=== PATIENT | male | born 1970 | race Hispanic/Latino ===

== ENCOUNTER 2021-03-20 15:11 | Inpatient (IN) | payer BC ==
--- OUTSIDE RECORDS SUMMARY | 2021-03-20 15:15 | XMS REPORT | Continuity of Care Document ---
:1970 Author Organization [facility] t Address [address] [place] [address] Dr. C[address]o [address] [place] [address] Care Team Providers Name Role Phone MAAMECHEMA SMITHFREDERICK Mancia Primary Care Physician Unavailable LYNDA Attending Clinician Unavailable EBRAHIM Attending Clinician Unavailable Ebrahim RESEARCH LABORATORY TECHNICIAN Attending Clinician Anene RESEARCH LABORATORY TECHNICIAN Attending Clinician Eric_Ronni Attending Clinician Unavailable Eric_Ronni Admitting Clinician Unavailable Payers Payer Name Policy Type Policy Number Effective Date Expiration Date S migdalia [facility] - [id number] 2013 00:00:00 OUT OF STATE [place] [facility] [id number] 2019 00:00:00 Problems Condition Condition Condition Status Onset Resolution Last Treating Co mments Source Name Details Category Date Date Treatment Clinician Date Long-term Long-term Problem Active Parvin colleen current Current 11-17 Family use of Use of 00:00: Practic insulin Insulin 00 e Gastropare Gastropare Problem Active V illage sis due to sis Due to 11-17 Fa penny type 1 Type 1 00:00: Practic diabetes Diabetes 00 e mellitus Mellitus Loss of Loss of Problem Active [facility] appetite Appetite 6-16 Family 00:00: Practic 00 e Neck Neck Problem Active [place] swelling Swelling 6-16 Family 00:00: Practic 00 e Type 1 Type 1 Problem Active [place] diabetes Diabetes 3-15 Family mellitus Mellitus 00:00: Practi c 00 e Chronic Chronic Disease Active Univers fatigue fatigue 12-16 ity of 00:00: [address] Mold Mold Disease Active Univers exposure exposure 9-30 ity of 00:00: [place] 00 Medical Branch Polyarthra Polyarthra Disease Active U nivers lgia lgia 9-30 ity of 00:00: [place] 00 Medical Branch Testicular Testicular Problem Active V illage hypofuncti Hypofuncti 6-30 Fa penny on on 00:00: Practic 00 e Unspecifie Unspecifie Disease Active U nivers d severe d severe 5-21 ity of protein-ca protein-ca 00:00: Patrick stewart 00 Medical malnutriti malnutriti Br anch on on Sepsis Sepsis Disease Active Univers affecting affecting 5-21 ity of skin skin 00:00: [place] 00 Medical Branch Left Left Disease Active Univers shoulder shoulder 1-17 ity of pain, pain, 00:00: [place] unspecifie unspecifie 00 Me dical d d Branch chronicity chronicity Anemia Anemia Problem Active 2016-03 [place] 0-17 Family 00:00: Practic 00 e Depressive Depressive Problem Active 2016-03 V illage disorder Disorder 0-17 Family 00:00: Practic 00 e Neuropathy Neuropathy Problem Active 2016-03 V illage 0-17 Family 00:00: Practic 00 e Gastropare Gastropare Problem Active 2016-03 V illage sis sis 0-17 Family syndrome Syndrome 00:00: Practi c 00 e Alopecia Alopecia Problem Active 2016-03 Lennon ge 0-17 Family 00:00: Practic [address] SN[address] CT Problem Active 2016-03 Parvin colleen Concept Concept 0-17 Family 00:00: Practic 00 e Finding of Finding of Problem Active 2016-03 [facility] urine Urine 0-17 Family substance Substance 00:00: Prac tic level Level 00 e Onychomyco Onychomyco Problem Active 2016-03 V illage sis sis 0-17 Family 00:00: Practic 00 e Tinea Tinea Problem Active 2016-03 [place] pedis Pedis 0-17 Family 00:00: Practic 00 e Gastropare Gastropare Problem Active 2016-03 [facility] [place] sis due to sis Due to 0-17 Fa penny diabetes Diabetes 00:00: Practi c mellitus Mellitus 00 e Disorder Disorder Problem Active 2016-03 Lennon ge of nervous of Nervous 0-17 Fa penny system due System Due 00:00: Pr actic to type 1 to Type 1 00 e diabetes Diabetes mellitus Mellitus Hypoglycem Hypoglycem Problem Active 2016-03 V illage ia ia 0-17 Family 00:00: Practic 00 e Chronic Chronic Disease Active 2016-03 Univers gastritis gastritis 0-06 ity of 00:00: [place] [facility] Epigastric Epigastric Disease Active Overview : Univers pain pain 9-27 Formattin ity of 00:00: g of this 00 note Medical might be Branch different from the original. Added automatic ally from request for surgery [id number] Iron Iron Disease Active Univers deficiency deficiency 5-03 it y of anemia anemia 00:00: [place] [facility] Diabetes Diabetes Disease Active 2015-03 Unive rs mellitus mellitus 0-11 ity of type 1, type 1, 00:00: [place] uncontroll uncontroll 00 Me dical ed, with ed, with Branch complicati complicati ons ons Peripheral Peripheral Disease Active 2015-03 U shereen polyneurop polyneurop 0-11 it y of athy athy 00:00: [place] [facility] Diabetic Diabetic Disease Active 2015-03 Unive rs retinopath retinopath 0-11 it y of y y 00:00: [place] associated associated 00 Me dical with type with type Bran ch 1 diabetes 1 diabetes mellitus, mellitus, macular macular edema edema presence presence unspecifie unspecifie d, d, unspecifie unspecifie d d retinopath retinopath y severity y severity Diabetic Diabetic Disease Active 2015-03 Unive rs nephropath nephropath 0-11 it y of y y 00:00: [place] associated associated 00 Me dical with type with type Bran ch 1 diabetes 1 diabetes mellitus mellitus Essential Essential Disease Active 2015-03 Uni vers hypertensi hypertensi 0-11 it y of on on 00:00: [place] [facility] Chronic Chronic Disease Active 2015-03 Univers constipati constipati 0-11 it y of on on 00:00: [place] [facility] Anxiety Anxiety Disease Active 2015-03 Univers 0-11 ity of 00:00: [place] [facility] Depression Depression Disease Active 2015-03 U shereen , , 0-11 ity of unspecifie unspecifie 00:[place] Medical depression depression Br anch type type Hyperlipid Hyperlipid Disease Active 2015-03 U shereen emia emia 0-11 ity of 00:00: [place] 00 Medical Branch Hypertensi Hypertensi Problem Active V illage ve ve Family disorder Disorder Practi c e Neuropathy Neuropathy Problem Active [facility] ill[facility] due to Due to Family type 1 Type 1 Practic diabetes Diabetes e mellitus Mellitus Allergies, Adverse Reactions, Alerts Allergy Allergy Status Severity Reaction(s) Onset Inactive Treating Comm ents Source Name Type Date Date Clinician NO KNOWN Drug Active Univers ALLERGIE Class ity of [facility] Social History Social Habit Start Date Stop Date Quantity Comments Source Exposure to Not sure [facility] SARS-CoV-2 [facility] (event) [place] History of Snuff User University of tobacco use [facility] Alcohol intake 2021-03-18 2021-03-18 0 /d University of 00:00:00 00:00:00 [facility] Tobacco Comment 2016-06-13 2016-06-13 Occasional chewing U niversity of 00:00:00 00:00:00 tobacco [facility] Sex [birth year] At [birth year] Universit y of 00:00:00 00:00:00 [facility] Smoking Status Start Date Stop Date Source Never smoker [facility] Medications Ordered Filled Start Stop Current Ordering Indication Dosage Frequency Signature Comments Components Source Medication Medication Date Date Medication? Clinician (SIG) Name Name ibuprofen 2020-03- No [id number] 800mg U nivers (IBU) 03-18 ity of tablet 800 17:45: 16:50 [place] mg 00 :[address] [facility] ibuprofen 2020-03- No [id number] 800mg 800 mg, Univers (IBU) 03-18 Oral, ity of tablet 800 17:45: 16:50 ONCE, 1 Rene as mg 00 :00 dose, On Medical Fri Branch 03/18/21 at 1145, Routine BUPRENORPHI 2020-03 Yes 20ug/h Apply 20 Univers NE (BUTRANS 2-27 mcg/hr to ity of TRANSDERMAL 14:14: skin. [place] ) [address] [place] [address] aspirin 81 2020-03 Yes 81mg Take 81 mg U nivers mg EC 2-27 by mouth ity of tablet 14:14: daily. [address] Branch esomeprazol 2020-03 Yes Take by Un alton e magnesium 2-27 mouth ity of (NEXIUM 14:14: daily. [place] ORAL) [address] [place] [address] insulin 2020-03 Yes Fiasp Univers aspart, 2-27 FlexTouch ity of niacinamide 14:14: U-100 [place] , (FIASP 58 Insulin Medical FLEXTOUCH 100 Branch U-100 unit/mL (3 INSULIN SC) mL) subcutaneo us pen Insulin 2020-03 Yes Basaglar Univer s Glargine 2-27 KwikPen ity of ([facility] 14:14: U-100 [place] KWIKPEN 58 Insulin Medical U-100 100 Branch INSULIN) unit/mL (3 100 unit/mL mL) (3 mL) subcutaneo injection us INJECT 9 UNITS SUBCUTANEO USLY EVERY MORNING AND INCREASE DIRECTED UP TO 30 UNITS DAILY traMADoL 50 2020-03 Yes tramadol Un alton mg tablet 2-27 50 mg ity of 14:14: tablet [place] [id number] Take 1 Medical tablet 3 Branch times a day by oral route for 28 days. TESTOSTERON 2020-03 Yes by Univer s E CYPIONATE 2- Intramuscu it y of IM 14:14: lar route. [place] [id number] PER MEN'S [facility] T CLINIC Branch BUPRENORPHI 2020-03 Yes 20ug/h Apply 20 Univers NE (BUTRANS 2-27 mcg/hr to ity of TRANSDERMAL 14:14: skin. [place] ) Medical Branch aspirin 81 2020-03 Yes 81mg Take 81 mg U nivers mg EC 2-27 by mouth ity of tablet 14:14: daily. [address] Branch esomeprazol 2020-03 Yes Take by Un alton e magnesium 2-27 mouth ity of (NEXIUM 14:14: daily. [place] ORAL) Medical Branch insulin 2020-03 Yes Fiasp Univers aspart, 2-27 FlexTouch ity of niacinamide 14:14: U-100 [place] , (FIASP 58 Insulin Medical FLEXTOUCH 100 Branch U-100 unit/mL (3 INSULIN SC) mL) subcutaneo us pen Insulin 2020-03 Yes Basaglar Univer s Glargine 2-27 KwikPen ity of (BASAGLAR 14:14: U-100 [place] KWIKPEN 58 Insulin Medical U-100 100 Branch INSULIN) unit/mL (3 100 unit/mL mL) (3 mL) subcutaneo injection us INJECT 9 UNITS SUBCUTANEO USLY EVERY MORNING AND INCREASE DIRECTED UP TO 30 UNITS DAILY traMADoL 50 2020-03 Yes tramadol Un alton mg tablet 2-27 50 mg ity of 14:14: tablet [place] 58 Take 1 Medical tablet 3 Branch times a day by oral route for 28 days. TESTOSTERON 2020-03 Yes by Univer s E CYPIONATE 2-27 Intramuscu it y of IM 14:14: lar route. [place] 58 PER [facility] Branch amLODIPine 2020-03- Yes [id number] 10mg Take 1 Univers 10 mg 2-27 -28 tablet by ity of tablet 00:00: 04:59 mouth [place] 00 :00 daily for Medical 90 days. Branch carvediloL 2020-03- Yes [id number] 25mg Take 1 Univers 25 mg 2-27 -28 tablet by ity of tablet 00:00: 04:59 mouth 2 [place] 00 :00 (two) Medical times Branch daily with meals for 90 days. amLODIPine 2020-03- Yes [id number] 10mg Take 1 Univers 10 mg 2-12 06-28 tablet by ity of tablet 00:00: 04:59 mouth [place] 00 :00 daily for Medical 90 days. Branch carvediloL 2020-03- Yes [id number] 25mg Take 1 Univers 25 mg 2-27 -28 tablet by ity of tablet 00:00: 04:59 mouth 2 [place] 00 :00 (two) Medical times Branch daily with meals for 90 days. carvediloL 2020- No 12.5mg Take 1 Un alton 12.5 mg 8-13 12-27 tablet by ity of tablet 00:00: 00:00 mouth 2 [place] 00 :00 (two) Medical times Branch daily with meals. iron Yes [id number] TAKE 1 Univers polysacchar 5-26 CAPSULE BY it y of ides 00:00: MOUTH [place] (FERREX 00 EVERY DAY Medical 150) 150 mg Branch iron capsule iron Yes [id number] TAKE 1 Univers polysacchar 5-26 CAPSULE BY it y of ides 00:00: MOUTH [place] (FERREX 00 EVERY DAY Medical 150) 150 mg Branch iron capsule AMLODIPINE 2018-03- No [id number] TAKE 1 Univers 10 mg 0-07 12-27 TABLET BY ity of tablet 00:00: 00:00 MOUTH [place] 00 :00 EVERY DAY Medical Branch Tapentadol 2018- Yes 100mg Take 100 Un alton (NUCYNTA) 9-18 mg by ity of 100 mg Tab 00:00: mouth 2 [place] 00 (two) Medical times Branch daily. Tapentadol Yes 100mg Take 100 Un al[place] (NUCYNTA) 9-18 mg by ity of 100 mg Tab 00:00: mouth 2 [place] 00 (two) Medical times Branch daily. ACCU-CHEK 2019- Yes [id number] Univ ers GUIDE strip 6-10 DIRECTED ity of 00:00: TWICE A [place] 00 DAY AND Medical NEEDED FOR Branch BLOOD GLUCOSE MONITORING ACCU-CHEK 2018- Yes [id number] Univ ers GUIDE strip 6-10 DIRECTED ity of 00:00: TWICE A [place] 00 DAY AND Medical NEEDED FOR Branch BLOOD GLUCOSE MONITORING Blood-Gluco Yes Use as Univ ers se Meter 4-12 directed ity of (ACCU-CHEK 00:00: FOR TWICE [place] CESAR PLUS 00 A DAY AND Medi richard METER) [facility] [place]N BLOOD [facility] GLUCOSE MONITORING FOR ICD E11.9 Blood-Gluco Yes Use as Univ ers se Meter 4-12 directed ity of (ACCU-CHEK 00:00: [place] TWICE [place] CESAR PLUS 00 A DAY AND Medi richard METER) [facility] [place] BLOOD [facility] GLUCOSE MONITORING FOR ICD E11.9 lisinopril 2015-03 Yes 40mg Take 1 Unive rs (PRINIVIL,Z 0-11 tablet by ity of ESTRIL) 40 00:00: mouth [place] mg tablet 00 daily. Medical Branch lisinopril 2015-03 Yes 40mg Take 1 Unive rs (PRINIVIL,Z 0-11 tablet by ity of ESTRIL) 40 00:00: mouth [place] mg tablet 00 daily. Medical Branch gabapentin gabapentin No gabapentin [place] 100 mg 100 mg 100 mg Family capsule capsule capsule Practi c TAKE 1 TAKE 1 TAKE 1 e CAPSULE CAPSULE CAPSULE EVERY DAY EVERY DAY EVERY DAY DIRECTED DIRECTED FOR 28 FOR 28 DIRECTED DAYS. DAYS. FOR 28 DAYS. Gvoke Gvoke No Gvoke [place] HypoPen HypoPen HypoPen Family 2-Pack 0.5 2-Pack 0.5 2-Pack 0.5 Practic mg/0.1 mL mg/0.1 mL mg/0.1 mL e subcutaneou subcutaneou subcutaneo s s us auto-inject auto-inject auto-injec or Inject or Inject tor Inject once as once as once as needed for needed for needed for hypoglycemi hypoglycemi hypoglycem a a ia ketoconazol ketoconazol No ketoconazo [place] e 2 % e 2 % le 2 % Family topical topical topical Practi c cream cream cream e lisinopril lisinopril No lisinopril [facility] 40 mg 40 mg 40 mg Family tablet TAKE tablet TAKE tablet Practic 1 TABLET BY 1 TABLET BY TAKE 1 e MOUTH EVERY MOUTH EVERY TABLET BY DAY DAY MOUTH EVERY DAY methocarbam methocarbam No methocarba [facility] ol 500 mg ol 500 mg mol 500 mg Family tablet TAKE tablet TAKE tablet Practic 1 TABLET BY 1 TABLET BY TAKE 1 e MOUTH TWICE MOUTH TWICE TABLET BY A DAY A DAY MOUTH TWICE A DAY Nucynta 100 Nucynta 100 No Nucynta [place] mg tablet mg tablet 100 mg Fam lubna TAKE 1 TAKE 1 tablet Practic TABLET 3 TABLET 3 TAKE 1 e TIMES A DAY TIMES A DAY TABLET 3 BY BY TIMES A DIRECTED DIRECTED DAY BY FOR 28 FOR 28 DIRECTED DAYS. DAYS. FOR 28 DAYS. ondansetron ondansetron No ondansetro [facility] 4 mg 4 mg n 4 mg Family disintegrat disintegrat disintegra Practic ing tablet ing tablet ting e DISSOLVE 1 DISSOLVE 1 tablet TABLET ON TABLET ON DISSOLVE 1 TONGUE 3 TONGUE 3 TABLET ON TIMES A DAY TIMES A DAY TONGUE 3 NEEDED NEEDED TIMES A DAY NEEDED Plenvu 140 Plenvu 140 No Plenvu 140 Village gram-9 gram-9 gram-9 Family gram-5.2 gram-5.2 gram-5.2 Pra ctic gram powder gram powder gram e packs packs powder packs sodium sodium No sodium [place] fluoride fluoride fluoride Fam lubna 1.1 % 1.1 % 1.1 % Practic dental dental dental e paste USE paste USE paste USE ONCE A DAY ONCE A DAY ONCE A DAY tramadol 50 tramadol 50 No tramadol [place] mg tablet mg tablet 50 mg Fami ly TAKE 1 TAKE 1 tablet Practic TABLET BY TABLET BY TAKE 1 e MOUTH EVERY MOUTH EVERY TABLET BY DAY FOR 28 DAY FOR 28 MOUTH DAYS DAYS EVERY DAY FOR 28 DAYS tretinoin tretinoin No tretinoin [facility] 0.025 % 0.025 % 0.025 % [facility] topical topical topical Practi c cream cream cream e Accu-Chek Accu-Chek No Accu-Chek [facility] Guide test Guide test Guide test Family strips strips strips Practic CHECK 8 CHECK 8 CHECK 8 e TIMES DAILY TIMES DAILY TIMES IN VITRO IN VITRO DAILY IN VITRO amlodipine amlodipine No amlodipine [facility] 5 mg tablet 5 mg tablet 5 mg F amily TAKE 1 TAKE 1 tablet Practic TABLET BY TABLET BY TAKE 1 e MOUTH EVERY MOUTH EVERY TABLET BY DAY DAY MOUTH EVERY DAY Basaglar Basaglar No Basaglar Parvin colleen KwikPen KwikPen KwikPen Family U-100 U-100 U-100 Practic Insulin 100 Insulin 100 Insulin e unit/mL (3 unit/mL (3 100 mL) mL) unit/mL (3 subcutaneou subcutaneou mL) s INJECT 9 s INJECT 9 subcutaneo UNITS UNITS us INJECT SUBCUTANEOU SUBCUTANEOU 9 UNITS SLY EVERY SLY EVERY SUBCUTANEO MORNING AND MORNING AND USLY EVERY INCREASE INCREASE MORNING DIRECTED UP DIRECTED UP AND TO 30 UNITS TO 30 UNITS INCREASE DAILY DAILY DIRECTED UP TO 30 UNITS DAILY buprenorphi buprenorphi No buprenorph [facility] ne 15 ne 15 ine 15 Family mcg/hour mcg/hour mcg/hour Pra ctic weekly weekly weekly e transdermal transdermal transderma patch APPLY patch APPLY l patch 1 PATCH 1 PATCH APPLY 1 EVERY WEEK EVERY WEEK PATCH BY FOR 28 BY FOR 28 EVERY WEEK DAYS. DAYS. BY FOR 28 DAYS. carvedilol carvedilol No carvedilol [facility] 12.5 mg 12.5 mg 12.5 mg Family tablet TAKE tablet TAKE tablet Practic 1 TABLET BY 1 TABLET BY TAKE 1 e MOUTH TWICE MOUTH TWICE TABLET BY A DAY WITH A DAY WITH MOUTH MEALS MEALS TWICE A DAY WITH MEALS cetirizine cetirizine No cetirizine [facility] 10 mg 10 mg 10 mg Family tablet TAKE tablet TAKE tablet Practic 1 TABLET BY 1 TABLET BY TAKE 1 e MOUTH EVERY MOUTH EVERY TABLET BY DAY DAY MOUTH EVERY DAY clonazepam clonazepam No clonazepam [facility] 0.5 mg 0.5 mg 0.5 mg Family tablet TAKE tablet TAKE tablet Practic 1 TABLET BY 1 TABLET BY TAKE 1 e MOUTH 3 MOUTH 3 TABLET BY TIMES PER TIMES PER MOUTH 3 DAY DAY TIMES PER DAY diclofenac diclofenac No diclofenac [facility] sodium 75 sodium 75 sodium 75 Family mg mg mg Practic tablet,rosalia tablet,rosalia tablet,del e yed release yed release ayed TAKE 1 TAKE 1 release TABLET BY TABLET BY TAKE 1 MOUTH TWICE MOUTH TWICE TABLET BY A DAY FOR A DAY FOR MOUTH 28 DAYS 28 DAYS TWICE A DAY FOR 28 DAYS Ferrex 150 Ferrex 150 No Ferrex 150 [place] mg iron mg iron mg iron Family capsule capsule capsule Practi c TAKE 1 TAKE 1 TAKE 1 e CAPSULE BY CAPSULE BY CAPSULE BY MOUTH EVERY MOUTH EVERY MOUTH DAY DAY EVERY DAY Fiasp Fiasp No Fiasp [place] FlexTouch FlexTouch FlexTouch Family U-100 U-100 U-100 Practic Insulin 100 Insulin 100 Insulin e unit/mL (3 unit/mL (3 100 mL) mL) unit/mL (3 subcutaneou subcutaneou mL) s pen Give s pen Give subcutaneo using ICR using ICR us pen 1:15; CF 1:15; CF Give using 1:50: TDD 1:50: TDD ICR 1:15; 40 40 CF 1:50: TDD 40 fluticasone fluticasone No fluticason [place] propionate propionate e Fam lubna 50 50 propionate Practic mcg/actuati mcg/actuati 50 e on nasal on nasal mcg/actuat spray,suspe spray,suspe ion nasal nsion USE 1 nsion USE 1 spray,susp SPRAY IN SPRAY IN ension USE EACH EACH 1 SPRAY IN NOSTRIL 2 NOSTRIL 2 EACH TIMES TIMES NOSTRIL 2 DAILY. DAILY. TIMES DAILY. Immunizations Ordered Filled Immunization Date Status Comments Sour e Immunization Name Name Influenza Virus 2018-01-21 Completed Universit y of Vaccine Quad IM 3+ 00:00:00 [facility] Influenza Virus 2018-01-21 Completed Universit y of Vaccine Quad IM 3+ 00:00:00 [facility] Influenza Virus 2014-01-17 Completed Universit y of Vaccine Quad IM 00:00:00 [place] Med ical Multi-dose 6+ MO Branch Influenza Virus 2014-01-17 Completed Universit y of Vaccine Quad IM 00:00:00 [place] Med ical Multi-dose 6+ MO Branch Vital Signs Vital Name Observation Time Observation Value Comments Source Systolic blood 2021-03-18 16:25:00 134 mm[Hg] Univer sity of pressure [facility] Diastolic blood 2021-03-18 16:25:00 72 mm[Hg] Unive [facility] Branch Heart rate 2021-03-18 16:25:00 76 /min Universi ty of [place] [facility] Body temperature 2021-03-18 16:25:00 39.33 Radha Univ ersity of [place] [facility] Respiratory rate 2021-03-18 16:25:00 18 /min Univ ersity of [place] [facility] Body height 2021-03-18 16:25:00 162.6 cm [facility]i [facility] [place] [facility] Body weight 2021-03-18 16:25:00 55.112 kg [facility] [place] [facility] BMI 2021-03-18 16:25:00 20.86 kg/m2 Universi ty [facility] [place] [facility] Oxygen saturation in 2021-03-18 16:25:00 98 /min University of Arterial blood by [place] [facility] Pulse oximetry Branch Systolic blood 2021-03-14 20:20:00 163 mm[Hg] Univer sity of pressure [place] [facility] Diastolic blood 2021-03-14 20:20:00 80 mm[Hg] Unive rsity of pressure [place] [facility] Heart rate 2021-03-14 20:15:00 82 /min Universi ty [facility] [place] [facility] Body height 2021-03-14 20:15:00 157.5 cm [facility] [place] [facility] Body weight 2021-03-14 20:15:00 51.937 kg [facility] [place] [facility] BMI 2021-03-14 20:15:00 20.94 kg/m2 [facility] [place] [facility] Oxygen saturation in 2021-03-14 20:15:00 99 /min University of Arterial blood by [place] [facility] Pulse oximetry Branch BP Diastolic 2020-11-17 00:00:00 82 mm[Hg] [facility] Height 2020-11-17 00:00:00 62 [in_i] [facility] BMI (Body Mass 2020-11-17 00:00:00 20.5 kg/m2 [facility] Index) Practice BP Systolic 2020-11-17 00:00:00 157 mm[Hg] [facility] Body Weight 2020-11-17 00:00:00 112 [lb_av] [facility] Body Weight 2020-09-01 00:00:00 118.4 [lb_av] [facility] BP Diastolic 2020-09-01 00:00:00 80 mm[Hg] [facility] Height 2020-09-01 00:00:00 62 [in_i] [facility] BMI (Body Mass 2020-09-01 00:00:00 21.7 kg/m2 [facility] Index) Practice BP Systolic 2020-09-01 00:00:00 150 mm[Hg] [facility] BP Diastolic 2020-05-31 00:00:00 96 mm[Hg] [facility] Height 2020-05-31 00:00:00 62 [in_i] [facility] BMI (Body Mass 2020-05-31 00:00:00 20.4 kg/m2 [facility] Index) Practice BP Systolic 2020-05-31 00:00:00 181 mm[Hg] [facility] Body Weight 2020-05-31 00:00:00 111.8 [lb_av] [facility] Procedures Procedure Date / Time Performed Performing Clinician Sourc e POCT MOLECULAR FLU 2021-03-18 16:29:00 Smiley Fernandez [facility] COMP. METABOLIC PANEL 2021-03-14 21:08:00 [facility] ([id number]) [facility] CBC WITH DIFF 2021-03-14 21:08:00 [facility] US, neck, soft tissue 2020-09-01 00:00:00 [facility] Plan of Care Planned Activity Planned Date Details Comments Source Diagnostic Test 2020-11-17 hemoglobin A1C, [facility] Danya tony Pending 00:00:00 fingerstick [code = Practice hemoglobin A1C, fingerstick] Diagnostic Test 2020-11-17 glucose, fingerstick, Parvin Johns Pending 00:00:00 blood [code = Practice glucose, fingerstick, blood] Encounters Start End Encounter Admission Attending Care Care Encounter Source Date/Time Date/Time Type Type Clinicians Facility Department ID 2021-04-13 2021-04-13 Outpatient LYNDA, [facility] [id number] Univers 14:40:00 14:40:00 BRODERICK [id number] analyy o [facility] 2021-03-21 2021-03-21 Outpatient R [facility] [id number] Univers 09:00:00 09:00[id number] 2021-03-21 Outpatient R [facility] [id number] Univers 09:00[facility]00 [facility]-18 2021-03-18 Outpatient R TRISTIANANTONELLAChristophe, [facility] [id number] Univers 10:00:00 10:58:05 RANIA [facility] 2021-03-18 2021-03-18 [facility] [id number] Univers 10:00:00 10:58:05 Care [facility] [id number] it y [facility] [id number] Rene as RAMIREZ?BLEA [id number] [facility] [address] [place] MEDICAL OFFICE [facility] 2021-03-18 2021-03-18 Outpatient R [facility] [id number] Univers 10:00:00 10:00:00 [id number] [facility] 2021-03-14 2021-03-14 [facility] [id number] Univers 14:00:00 15:08:57 Visit [facility] [id number] it y [facility] [id number] Rene as RAMIREZ?BLEA [id number] [facility] [address] MEDICAL OFFICE BUILDING 2020-11-27 2020-11-27 Outpatient Daniel_T VFP VFP [id number] [facility] 02:38:00 02:38:00 [id number] Family Practic e 2020-11-18 2020-11-18 Outpatient Daniel_T VFP VFP [id number] [id number] [facility] 10:06:00 10:06:00 [id number] Family Practic e 2020-11-17 2020-11-17 Outpatient Daniel_T VFP VFP [id number] [place] 05:37:00 05:37:00 [id number] Family Practic e 2020-11-17 2020-11-17 [place]de VFP [place] - [id number] V illage 00:00:00 00:00:00 David [facility] Valentina Mckeon - Aslheigh pérez MD: [id number] VM_HOU_Shad e [facility], [address], [place] [address] , Ph. 2020-10-02 2020-10-02 Outpatient Daniel_T VFP VFP [id number] 0-20 [facility] 03:11:00 03:11:00 [id number] Family Practic e 2020-10-02 2020-10-02 Outpatient Daniel_T VFP VFP [id number] 0-20 [facility] 03:11:00 03:11:00 [id number] Family Practic e 2020-10-02 2020-10-02 Outpatient Daniel_T VFP VFP [id number] 0-20 [facility] 03:11:00 03:11:00 [id number] Family Practic e 2020-10-02 2020-10-02 Outpatient Daniel_T VFP VFP [id number] 0-20 [facility] 03:11:00 03:11:00 [id number] Family Practic e 2020-10-02 2020-10-02 Outpatient Daniel_T VFP VFP [id number] 0-20 [facility] 03:11:00 03:11:00 [id number] Family Practic e 2020-09-17 2020-09-17 Outpatient Daniel_T VFP VFP [id number] 0-20 [facility] 02:41:00 02:41:00 [id number] Family Practic e 2020-09-06 2020-09-06 Outpatient Daniel_T VFP VFP [id number] 0-20 [facility] 07:35:00 07:35:00 [id number] Family Practic e 2020-09-03 2020-09-03 Outpatient Daniel_T VFP VFP [id number] 0-20 [facility] 06:28:00 06:28:00 [id number] Family Practic e 2020-09-02 2020-09-02 Outpatient Daniel_T VFP VFP [id number] 0-20 [facility] 01:20:00 01:20:00 [id number] Family Practic e 2020-09-01 2020-09-01 Outpatient Daniel_T VFP VFP [id number] 0-20 [facility] 06:03:00 06:03:00 [id number] Family Practic e 2020-09-01 2020-09-01 [place] [facility] [place] - [id number] V illage 00:00:00 00:00:00 [facility] Family ReyesValentina - Pracaleyda pérez MD: [id number] CLAUDIARUTHYJazmineamador barrington [facility], [address], [place] [address] , Ph. 2020-08-28 2020-08-28 Outpatient Daniel_T VFP VFP [id number] 0-20 [facility] 06:28:00 06:28:00 [id number] Family Practic e 2020-08-28 2020-08-28 Outpatient Daniel_T VFP VFP [id number] 0-20 [facility] 06:28:00 06:28:00 [id number] Family Practic e 2020-07-24 2020-07-24 Outpatient Daniel_T VFP VFP [id number] 0-20 [facility] 01:01:00 01:01:00 [id number] Family Practic e 2020-06-19 2020-06-19 Outpatient Daniel_T VFP VFP [id number] 0-20 [facility] 01:01:00 01:01:00 [id number] Family Practic e 2020-06-04 2020-06-04 Outpatient Daniel_T VFP VFP [id number] 0-20 [facility] 03:14:00 03:14:00 [id number] Family Practic e 2020-05-31 2020-05-31 Outpatient Daniel_T VFP VFP [id number] 0-20 [facility] 03:25:00 03:25:00 [id number] Family Practic e 2020-05-31 2020-05-31 [place] [facility] [place] - [id number] [facility]00 [facility] Valentina - Ashleigh pérez MD: [id number] PEREZNahumAndrea barrington [facility], [address], [place] [address] , Ph. Results Test Description Test Time Test Comments Results Result Comments Source POCT MOLECULAR FLU 2021-03-18 16:40:23 Test Item Value Reference Range Interpretation Comme nts POCT Molecular FluA (test code = 32969-4) Negative Negative POCT Molecular FluB (test code = 50270-8) Negative Negative Lab Interpretation (test code = 89970-3) Normal [facility]. METABOLIC PANEL (09413)2021-03-15 04:38:53 Test Item Value Reference Range Interpretation Comments NA (test code = 135 mmol/L 135-145 1098968429) K (test code = 5.2 mmol/L 3.5-5.0 H 9185208452) CL (test code = 97 mmol/L 98-108 L 5210276822) CO2 TOTAL (test code = 35 mmol/L 23-31 H 5880019393) AGAP (test code = 2-16 3432075929) BUN (test code = 20 mg/dL 7-23 6782335017) GLUCOSE (test code = 195 mg/dL 70-110 H 6428831146) CREATININE (test code = 1.14 mg/dL 0.60-1.25 8120259640) TOTAL BILI (test code = 0.5 mg/dL 0.1-1.3 1073196490) CALCIUM (test code = 9.3 mg/dL 8.6-10.6 1118279313) T PROTEIN (test code = 7.5 g/dL 6.3-8.2 9979315502) ALBUMIN (test code = 4.3 g/dL 3.5-5.0 4609970222) ALK PHOS (test code = 59 U/L 34-122 1603875022) ALTv (test code = 26 U/L 5-50 1742-6) AST(SGOT) (test code = 25 U/L 13-40 8993604260) eGFR (test code = mL/min/1.73m2 3001407532) LINDA (test code = LINDA) Association of Glomerular Filtration Rate (GFR) and Staging of Kidney Disease* + --+ --+ ------+| GFR (mL/min/1.73 m2) ?| With Kidney Damage ?| ?Without Kidney Damage+ --------+ --------+ +| ?>90 ?| ?Stage one ?| ? Normal ?+ ---+ ---+ -------+| ?60-89 ?| ?Stage two ?| ? Decreased GFR ? + --+ --+ ------+| ?30-59 ?| ?Stage three ?| ? Stage three ? + --+ --+ ------+| ?15-29 ?| ?Stage four ? | ? Stage four ?+ ---+ ---+ -------+| ?<15 (or dialysis) ? ?| ?Stage five ? | ? Stage five ?+ ---+ ---+ -------+ *Each stage assumes the associated GFR level has been in effect for at least three months. ?Stages 1 to 5, with or without kidney disease, indicate chronic kidney disease. Notes: Determination of stages one and two (with eGFR >59mL/min/1.73 m2) requires estimation of kidney damage for at least three months as defined by structural or functional abnormalities of the kidney, manifested by either:Pathological abnormalities or Markers of kidney damage (including abnormalities in the composition of the blood or urine or abnormalities in imaging tests). Lab Interpretation Abnormal (test code = 39508-2) [facility] WITH [id number] 04:22:08 Test Item Value Reference Range Interpretation Comments WBC (test code = See_Comment H [Automated 7490-2) message] The sy stem which generated this result transmitted reference range : 4.20 - 10.70 10*3/?L. The reference range was not used to interpret this result as normal/abnormal . RBC (test code = See_Comment [Automated 789-8) message] The sy stem which generated this result transmitted reference range : 4.26 - 5.52 10*6/?L. The reference range was not used to interpret this result as normal/abnormal . HGB (test code = 14.8 g/dL 12.2-16.4 718-7) HCT (test code = 42.9 % 38.4-49.3 4544-3) MCV (test code = 89.6 fL 81.7-95.6 787-2) MCH (test code = 30.9 pg 26.1-32.7 785-6) MCHC (test code = 34.5 g/dL 31.2-35.0 786-4) RDW-SD (test code = 36.0 fL 38.5-51.6 L 23367-6) RDW-CV (test code = 11.1 % 12.1-15.4 L 788-0) PLT (test code = See_Comment [Automated 777-3) message] The sy stem which generated this result transmitted reference range : 150 - 328 10*3/ ?L. The reference r jaret was not used to interpret this result as normal/abnormal . MPV (test code = 11.8 fL 9.8-13.0 38988-3) NRBC/100 WBC (test See_Comment [Automat ed code = 8708913178) message] The system which generated this result transmitted reference range : 0.0 - 10.0 /100 WBCs. The refer ence range was not u sed to interpret th is result as normal/abnormal . NRBC x10^3 (test code <0.01 See_Comment [Auto mated = 3189803853) message] The s ystem which generated this result transmitted reference range : 10*3/?L. The reference range was not used to interpret this result as normal/abnormal . GRAN MAT (NEUT) % 73.5 % (test code = 770-8) IMM GRAN % (test code 0.20 % = 8354501762) LYMPH % (test code = 15.5 % 736-9) MONO % (test code = 7.0 % 5905-5) EOS % (test code = 2.6 % 713-8) BASO % (test code = 1.2 % 706-2) GRAN MAT x10^3(ANC) 7.94 10*3/uL 1.99-6.95 H (test code = 1750993262) IMM GRAN x10^3 (test <0.03 0.00-0.06 code = 9524547475) LYMPH x10^3 (test code 1.68 10*3/uL 1.09-3.23 = 731-0) MONO x10^3 (test code 0.76 10*3/uL 0.36-1.02 = 742-7) EOS x10^3 (test code = 0.28 10*3/uL 0.06-0.53 711-2) BASO x10^3 (test code 0.13 10*3/uL 0.01-0.09 H = 704-7) Lab Interpretation Abnormal (test code = 91642-6) [facility] 2020-11-17 15:39:53 Test Item Value Reference Range Interpretation Comments Hemoglobin A1C Fingerstick: (test code 8.2 = Hemoglobin A1C Fingerstick:) [facility]"
[2021-03-20 15:51] LABS: Absolute Lymphocytes (CBC) 0.7 K/uL (0.7-4.9); Hematocrit 38.2 % (39.6-49.0); Lymphocytes % 7.8 % (15.3-44.8); MPV 10.5 fL (7.6-11.3); Protime INR 1.31; RBC Red Blood Cell Count 4.18 M/uL (4.33-5.43)
[2021-03-20] MEDS ORDERED: NA CHLORIDE 0.9% 2,000 ML ONE (15:55)
[2021-03-20 15:57] LABS: Urine Blood Negative (Negative); Urine Glucose 2+ (Negative); Urine Protein 1+ (Negative); Urine Specific Gravity 1.015 (1.005-1.030)
[2021-03-20 16:08] LABS: ALT/SGPT 75 U/L (12-78); AST/SGOT 27 U/L (15-37); Alkaline Phosphatase 138 U/L (45-117); Amylase 46 U/L (25-115); BUN Blood Urea Nitrogen 53 mg/dL (7-18); Bicarbonate 24 mmol/L (21-32); Bilirubin Direct < 0.1 mg/dL (0-0.2); Bilirubin Total 0.3 mg/dL (0.2-1.0); CKMB Creatine Kinase MB 5.4 ng/mL (1.0-3.6); Creatine Phosphokinase 274 U/L (39-308); Glucose Level 132 mg/dL (74-106); Lipase 94 U/L (73-393); Potassium 4.3 mmol/L (3.5-5.1); Protein, Total 7.4 g/dL (6.4-8.2); Sodium Level 127 mmol/L (136-145); Troponin (Emerg Dept Use Only) 0.02 ng/mL (0.0-0.045)
[2021-03-20 16:20] LABS: White Blood Cell Scan OK (OK)
[2021-03-20 16:21] LABS: Blood Morphology Comment NOT SEEN (NOT SEEN); Platelet Estimate ADEQ
[2021-03-20 16:26] LABS: Urine Bacteria <20 /HPF (NONE SEEN); Urine RBC <5 /HPF (NONE SEEN)
[2021-03-20 16:30] LABS: Arterial Blood Carboxyhemoglob 0.9 % (0-1.5); Blood Gas Oxyhemoglobin 87.1 % (94-97); Blood O2 Saturation 88.7 % (92-98.5)
--- NOTE | 2021-03-20 16:38 | RAD REPORT ---
EXAM DESCRIPTION: RAD - Chest Single View - 03/20/2021 3:51 pm CLINICAL HISTORY: DYSPNEA COMPARISON: Chest Pa And Lat (2 Views) dated 04/02/2018; Abdomen Acute Series dated 05/30/2017 FINDINGS: Lines: None. Lungs: Moderate multifocal airspace disease which is partially consolidative in the lung bases. Pleural: No significant pleural effusions or pneumothorax. Cardiac: The heart size is within normal limits. Bones: No acute fractures. Other: IMPRESSION: Moderate multifocal airspace disease concerning for multifocal pneumonia including Covid -19.
[2021-03-20] MEDS ORDERED: NA CHLORIDE 0.9% 100 ML ONE ×2 (16:39→23:52)
[2021-03-20] MEDS ORDERED: CEFTRIAXONE 1000 MG/VIAL ONE (16:39)
--- NOTE | 2021-03-20 17:04 | ER ---
Nurse's Notes [facility] Name[facility] Miah Esquivel Jr Age: 50 yrs Sex: Male : 1970 Arrival Date: 03/20/2021 Time: 15:13 Bed 4 Private MD: Diagnosis: Other viral pneumonia-Covid Presentation: 03/20 15:10 Chief complaint: EMS states: sob over the last week with decreased o2 stats the last 2 [facility] days. Pt was tested twice for covid and flu, bith were neg. O2 stat on room air was 56 and after nrb at 10lpm per EMS O2 came up to 92%. Coronavirus screen: Vaccine status: Patient reports receiving the 2nd dose of the covid vaccine. Client denies travel out of the [place] in the last 14 days. Ebola Screen: Patient denies travel to an Ebola-affected area in the 21 days before illness onset. 15:10 Method Of Arrival: EMS: [place] [id number] 15:10 Initial Sepsis Screen: Does the patient meet any 2 criteria? RR > 20 per min. Does the [facility] patient have a suspected source of infection? No. Patient's initial sepsis screen is negative. Risk Assessment: Do you want to hurt yourself or someone else? Patient reports no desire to harm self or others. Onset of symptoms was March 08, 2021. 15:10 Acuity: ROSALINDA [address] [facility] Triage Assessment: 15:36 General: Appears distressed, ill, slender, unkempt, Behavior is cooperative, anxious. [facility] Pain: Complains of pain in back Pain currently is 5 out of 10 on a pain scale. Quality of pain is described as sharp, gnawing. Historical: - Allergies: 15:37 No Known Allergies; [facility] - Home Meds: 15:37 amlodipine oral [Active]; butrinis [Active]; Clonazepam Oral [Active]; Iron CR Oral [facility] [Active]; lisinopril Oral [Active]; necynta [Active]; Novolog 100 unit/mL Sub-Q soln [Active]; triseba [Active]; vitamins [Active]; - PMHx: 15:37 Anxiety; Diabetes - IDDM; Hypertension; neuropathy; [facility] - Immunization history:: Adult Immunizations up to date, Client reports receiving the 2nd dose of the Covid vaccine. - Social history:: Smoking status: unknown. Screenin:01 Abuse screen: Denies threats or abuse. Nutritional screening: No deficits noted. jh6 Tuberculosis screening: No symptoms or risk factors identified. Fall Risk None identified. Assessment: 16:01 General: Appears distressed, uncomfortable, Behavior is cooperative, agitated. Pain: jh6 Complains of pain in back. 17:35 Reassessment: Patient is alert, oriented x 3, equal unlabored respirations, skin jh6 warm/dry/pink. Patient states symptoms have improved. General: Appears comfortable, Behavior is calm, cooperative. 17:35 Cardiovascular: No deficits noted. Respiratory: Reports shortness of breath on exertion jh6 since this last . 18:39 Reassessment: No changes from previously documented assessment. Patient and/or family jh6 updated on plan of care and expected duration. Pain level reassessed. Patient states feeling better. 21:57 Reassessment: No changes from previously documented assessment. Patient and/or family tw5 updated on plan of care and expected duration. Pain level reassessed. Patient is alert, oriented x 3, equal unlabored respirations, skin warm/dry/pink. " I am doing okay, My sugar went up." reports that she checked his sugar and it was at 110. 01/03 00:11 General: Appears in no apparent distress. uncomfortable, Behavior is calm, cooperative, tw5 appropriate for age. Neuro: Level of Consciousness is awake, alert, obeys commands, Oriented to person, place, time, situation. Cardiovascular: Heart tones S1 S2 present. Respiratory: Airway is patent Trachea midline Respiratory effort is labored, Respiratory pattern is tachypnea Patient placed on BiPAP: FiO2%: 95. 01:39 General: Appears in no apparent distress. Behavior is calm, cooperative, appropriate tw5 for age, Called Solitario Curiel regarding Mr. Esquivel oxygen level wavering between 85-89 even with the BIPAP. She suggested RT be called to adjust setting and revaluate. RT paged. . Respiratory: Reports Breath sounds are coarse bilaterally. 06:16 General: Behavior is agitated, Reports that Miah is " very frustrated with the tw5 mask, he told me he just wants to take it off and walk out here.". 06:44 General: Helped patient to chair.. tw5 19:28 General: Appears in no apparent distress. comfortable, Behavior is calm, cooperative, tw5 appropriate for age. Neuro: Level of Consciousness is awake, alert, obeys commands, Oriented to person, place, time, situation, Pupils are PERRLA. Cardiovascular: Heart tones S1 S2 present. Respiratory: Airway is patent Trachea midline Respiratory effort is even, unlabored, Respiratory pattern is regular, Patient placed on BiPAP: Respiratory Rate: 18 Breath sounds are coarse bilaterally. Spoke to at bedside. Reeducated her on the need to reframe from giving him medications that we are unaware of. 20:08 General: evening medications administered. patients needs have been met at this time. . 5 03/22 01:19 General: Behavior is calm, cooperative, appropriate for age, Helped patient to tw5 reposition to his side for sleeping. . 03:14 General: Reports " I am feeling a lot better.". tw5 04:46 Reassessment: Patient appears in no apparent distress at this time. General: Behavior tw5 is calm, cooperative. Vital Signs: 03/20 15:10 BP 145 / 81; Pulse 70; Resp 22; Temp 97.6(O); Pulse Ox 80% on R/A; Pain 0/10; jh6 15:51 Weight 54.43 kg; Height 5 ft. 4 in. (162.56 cm); 6 16:02 BP 145 / 81; Pulse 63; Resp 18; Temp 98.0; Pulse Ox 97% ; Pain 4/10; jh6 18:39 BP 110 / 70; Pulse 88; Resp 17; Pulse Ox 90% on BiPAP; Pain 3/10; jh6 21:57 Resp 18; Pulse Ox 90% on BiPAP; tw5 03/21 00:11 BP 133 / 69; Pulse 77; Resp 19; Pulse Ox 92% on 95% BiPAP; tw5 01:39 Pulse 81; Resp 27; Pulse Ox 88% on BiPAP; tw5 06:44 BP 163 / 90; Pulse 94; Resp 28; Pulse Ox 92% on 100% BiPAP; tw5 19:28 BP 139 / 88; Pulse 80; Resp 18; Pulse Ox 91% on BiPAP; tw5 20:08 BP 134 / 76; Pulse 78; Resp 18; Pulse Ox 100% on 100% BiPAP; 03/22 01:19 BP 119 / 65; Pulse 75; Resp 18; Pulse Ox 99% on BiPAP; tw5 03:14 BP 119 / 56; Pulse 78; Resp 23; Pulse Ox 99% on 95% BiPAP; tw5 04:46 BP 126 / 54; Pulse 73; Resp 18; Pulse Ox 95% on BiPAP; tw5 03/20 15:51 Body Mass Index 20.60 (54.43 kg, 162.56 cm) [facility] Vitals: 03/20 18:39 Cardiac Rhythm Assessment Regular. [facility] ED Course: 15:10 Inserted saline lock: 18 gauge in left antecubital area, using aseptic technique. jh6 15:13 Patient arrived in ED. ds1 15:16 Case Anthony MD is Attending Physician. kdr 15:32 Raina Hernandez, RN is Primary Nurse. 6 15:36 Triage completed. 6 15:39 Basic Metabolic Panel Sent. jh6 15:39 Amylase Sent. jh6 15:39 Amylase, Serum Sent. 6 15:39 Basic Metabolic Panel Sent. jh6 15:39 Chest Single View XRAY Sent. jh6 15:39 Blood Culture Adult (2) Sent. jh6 15:40 CBC with Diff Sent. jh6 15:40 CPK Sent. jh6 15:40 Ckmb Sent. jh6 15:51 Chest Single View XRAY In Process Unspecified. EDNY 16:02 Bed in low position. Call light in reach. Side rails up X 1. Adult w/ patient. jh6 16:02 Arm band placed on right wrist. 6 17:02 Bal Greene is Hospitalizing Provider. kdr 17:19 Makenzie Mon MD is Hospitalizing Provider. kdr 17:57 Thorax Wo Con In Process Unspecified. EDMS 19:12 Primary Nurse role handed off by Raina Hernandez, SHREYA eb 21:57 Lima Brothers is Primary Nurse. tw5 21:57 awake overnight monitor on. Pulse ox on. NIBP on. Door closed. Noise minimized. Moved to [facility] private room. Warm blanket given. Oral care given. Verbal reassurance given. 03/21 00:13 Diet: Patient given juice. tw5 06:44 No provider procedures requiring assistance completed. 5 03/22 06:00 Patient admitted, IV remains in place. tw5 Administered Medications: 03/20 16:00 Drug: NS 0.9% (30 ml/kg) 30 ml/kg Route: IV; Rate: bolus; Site: left antecubital; [facility] 03/21 00:20 Follow up: Response: No adverse reaction; IV Status: Completed infusion 03/20 16:43 Drug: Rocephin - (cefTRIAXone) 2 grams Route: IVPB; Infused Over: 30 mins; Site: left [facility] antecubital; 18:38 Follow up: Response: No adverse reaction [facility] 03/21 00:20 Follow up: Response: No adverse reaction; IV Status: Completed infusion 03/20 18:25 Drug: vancoMYCIN 1 grams Route: IVPB; Infused Over: 2 hrs; Site: left antecubital; [facility] 03/21 00:19 Follow up: Response: No adverse reaction; IV Status: Completed infusion Outcome: 03/20 17:03 Decision to Hospitalize by Provider. kdr 03/22 06:00 Admitted to Med/surg accompanied by nurse, with chart. tw5 Condition: improved Instructed on the need for admit. 06:07 Patient left the ED. Signatures: Dispatcher [employer] EDMS Case Anthony MD MD kdr Sanford, Demi ds1 Jayshree Mullins Tiffany 5 Raina Hernandez RN RN jh6 Corrections: (The following items were deleted from the chart) 03/20 21:58 21:57 Pulse 18bpm; Pulse Ox 90% BiPAP; [place] [id number] 03/21 00:13 00:11 Pulse 77bpm; Resp 19bpm; Pulse Ox 92% 02 95% BiPAP; [place] [id number]
--- NOTE | 2021-03-20 17:05 | EDPHYS ---
Physician Documentation [facility] Name: Miah Esquivel Jr Age: 50 yrs Sex: Male : 1970 Arrival Date: 03/20/2021 Time: 15:13 Bed 4 Private MD: ED Physician Case Anthony HPI: 03/20 16:31 This 50 yrs old Male presents to ER via EMS with complaints of Low O2. kdr 16:31 The patient has shortness of breath at rest, with light activity. Onset: The kdr symptoms/episode began/occurred gradually, 2 day(s) ago. Duration: The symptoms are continuous, and are steadily getting worse. The patient's shortness of breath is aggravated by coughing, exertion, light activity. Associated signs and symptoms: Pertinent positives: fever, Pertinent negatives: chest pain, non-productive cough, productive cough, diaphoresis, dizziness, hemoptysis, loss of consciousness, nausea, numbness in extremities. Severity of symptoms: At their worst the symptoms were severe incapacitating just prior to arrival, in the emergency department the symptoms are unchanged. The patient has not experienced similar symptoms in the past. The patient has not recently seen a physician. 16:33 Custom when he have to go to the has been tested twice in the recent days for Covid. He kdr was negative on both test. Over the last 2 days he has become increasingly short of breath. When EMS arrived at his home, his saturation was noted to be 56% on room air. He was then put on a nonrebreather at 10 L/min and his saturation improved into the mid 80s.. Historical: - Allergies: 15:37 No Known Allergies; 6 - Home Meds: 15:37 amlodipine oral [Active]; butrinis [Active]; Clonazepam Oral [Active]; Iron CR Oral jh6 [Active]; lisinopril Oral [Active]; necynta [Active]; Novolog 100 unit/mL Sub-Q soln [Active]; triseba [Active]; vitamins [Active]; - PMHx: 15:37 Anxiety; Diabetes - IDDM; Hypertension; neuropathy; jh6 - Immunization history:: Adult Immunizations up to date, Client reports receiving the 2nd dose of the Covid vaccine. - Social history:: Smoking status: unknown. ROS: 16:33 Constitutional: Negative for fever, chills, and weight loss, Eyes: Negative for injury, kdr pain, redness, and discharge, ENT: Negative for injury, pain, and discharge, Neck: Negative for injury, pain, and swelling, Cardiovascular: Negative for chest pain, palpitations, and edema, Abdomen/GI: Negative for abdominal pain, nausea, vomiting, diarrhea, and constipation, Back: Negative for injury and pain, : Negative for injury, bleeding, discharge, and swelling, MS/Extremity: Negative for injury and deformity, Skin: Negative for injury, rash, and discoloration, Neuro: Negative for headache, weakness, numbness, tingling, and seizure activity. Psych: Negative for depression, anxiety, suicide ideation, homicidal ideation, and hallucinations, Allergy/Immunology: Negative for hives, rash, and allergies, Endocrine: Negative for neck swelling, polydipsia, polyuria, polyphagia, and marked weight changes, Hematologic/Lymphatic: Negative for swollen nodes, abnormal bleeding, and unusual bruising. 16:33 Respiratory: Positive for cough, with no reported sputum, dyspnea on exertion, shortness of breath, Negative for hemoptysis, orthopnea, pleurisy, sputum production, wheezing. Exam: 16:30 ECG was reviewed by the Attending Physician. kdr 16:33 Constitutional: This is a well developed, well nourished patient who is awake, alert, kdr and in no acute distress. Head/Face: Normocephalic, atraumatic. Eyes: Pupils equal round and reactive to light, extra-ocular motions intact. Lids and lashes normal. Conjunctiva and sclera are non-icteric and not injected. Cornea within normal limits. Periorbital areas with no swelling, redness, or edema. Neck: Trachea midline, no thyromegaly or masses palpated, and no cervical lymphadenopathy. Supple, full range of motion without nuchal rigidity, or vertebral point tenderness. No Meningismus. Chest/axilla: Normal chest wall appearance and motion. Nontender with no deformity. No lesions are appreciated. Cardiovascular: Regular rate and rhythm with a normal S1 and S2. No gallops, murmurs, or rubs. Normal PMI, no JVD. No pulse deficits. Abdomen/GI: Soft, non-tender, with normal bowel sounds. No distension or tympany. No guarding or rebound. No evidence of tenderness throughout. Back: No spinal tenderness. No costovertebral tenderness. Full range of motion. Skin: Warm, dry with normal turgor. Normal color with no rashes, no lesions, and no evidence of cellulitis. MS/ Extremity: Pulses equal, no cyanosis. Neurovascular intact. Full, normal range of motion. Neuro: Awake and alert, GCS 15, oriented to person, place, time, and situation. Cranial nerves II-XII grossly intact. Motor strength 5/5 in all extremities. Sensory grossly intact. Cerebellar exam normal. Normal gait. Psych: Awake, alert, with orientation to person, place and time. Behavior, mood, and affect are within normal limits. 16:33 Respiratory: mild respiratory distress is noted, Respirations: labored breathing, that is mild, Breath sounds: Coarse breath sounds throughout perhaps diminished on the right. Vital Signs: 15:10 BP 145 / 81; Pulse 70; Resp 22; Temp 97.6(O); Pulse Ox 80% on R/A; Pain 0/10; 6 15:51 Weight 54.43 kg; Height 5 ft. 4 in. (162.56 cm); 6 16:02 BP 145 / 81; Pulse 63; Resp 18; Temp 98.0; Pulse Ox 97% ; Pain 4/10; jh6 18:39 BP 110 / 70; Pulse 88; Resp 17; Pulse Ox 90% on BiPAP; Pain 3/10; jh6 21:57 Resp 18; Pulse Ox 90% on BiPAP; tw5 03/21 00:11 BP 133 / 69; Pulse 77; Resp 19; Pulse Ox 92% on 95% BiPAP; tw5 01:39 Pulse 81; Resp 27; Pulse Ox 88% on BiPAP; tw5 06:44 BP 163 / 90; Pulse 94; Resp 28; Pulse Ox 92% on 100% BiPAP; tw5 19:28 BP 139 / 88; Pulse 80; Resp 18; Pulse Ox 91% on BiPAP; tw5 20:08 BP 134 / 76; Pulse 78; Resp 18; Pulse Ox 100% on 100% BiPAP; tw5 03/22 01:19 BP 119 / 65; Pulse 75; Resp 18; Pulse Ox 99% on BiPAP; tw5 03:14 BP 119 / 56; Pulse 78; Resp 23; Pulse Ox 99% on 95% BiPAP; tw5 04:46 BP 126 / 54; Pulse 73; Resp 18; Pulse Ox 95% on BiPAP; tw5 03/20 15:51 Body Mass Index 20.60 (54.43 kg, 162.56 cm) jh6 MDM: 03/20 16:33 Data reviewed: vital signs, nurses notes, lab test result(s), radiologic studies. kdr Counseling: I had a detailed discussion with the patient and/or guardian regarding: the historical points, exam findings, and any diagnostic results supporting the discharge/admit diagnosis, lab results, radiology results, the need for further work-up and treatment in the hospital. 17:03 Patient medically screened. kdr 03/20 15:18 Order name: Amylase, Serum kdr 03/20 15:18 Order name: Basic Metabolic Panel kdr 03/20 15:18 Order name: Blood Culture Adult (2) kdr 03/20 15:18 Order name: CBC with Diff; Complete Time: 16:25 kdr 03/20 15:18 Order name: CPK; Complete Time: 16:25 kdr 03/20 15:18 Order name: Ckmb; Complete Time: 16:25 kdr 03/20 15:18 Order name: LFT's; Complete Time: 16:25 kdr 03/20 15:18 Order name: Lactate; Complete Time: 16:25 kdr 03/20 15:18 Order name: Lipase; Complete Time: 16:25 kdr 03/20 15:18 Order name: Procalcitonin; Complete Time: 17:04 kdr 03/20 15:18 Order name: Protime (+inr); Complete Time: 16:25 kdr 03/20 15:18 Order name: Ptt, Activated; Complete Time: 16:25 kdr 03/20 15:18 Order name: Troponin (emerg Dept Use Only); Complete Time: 16:25 kdr 03/20 15:18 Order name: Urine Microscopic Only; Complete Time: 16:30 kdr 03/20 15:18 Order name: Amylase; Complete Time: 16:25 EDMS 03/20 15:19 Order name: Basic Metabolic Panel; Complete Time: 16:25 EDMS 03/20 15:56 Order name: ABG; Complete Time: 17:04 kdr 03/20 15:57 Order name: Urine Dipstick-Ancillary; Complete Time: 16:25 EDMS 03/20 16:20 Order name: CBC Smear Scan; Complete Time: 16:25 EDMS 03/20 16:42 Order name: SARS-COV-2 RT PCR (Document "Date of Onset" if Symptomatic) eb 03/20 19:04 Order name: Glucose, Ancillary Testing EDMS 03/20 20:01 Order name: Lactate Sepsis 2 HR Follow-up EDMS 03/20 20:06 Order name: Comprehensive Metabolic Panel EDMS 03/20 20:06 Order name: Comprehensive Metabolic Panel EDMS 03/20 20:06 Order name: Lactate EDMS 03/20 20:06 Order name: Lactate EDMS 03/20 20:06 Order name: Lipid Profile EDMS 03/20 20:06 Order name: Lipid Profile EDMS 03/20 20:06 Order name: CBC with Automated Diff EDMS 03/20 20:06 Order name: CBC with Automated Diff EDMS 03/20 15:18 Order name: Chest Single View XRAY; Complete Time: 17:04 kdr 03/20 17:49 Order name: Thorax Wo Con EDMS 03/20 20:06 Order name: CONS Physician Consult EDMS 03/20 20:06 Order name: Magnesium EDMS 03/20 20:06 Order name: Magnesium EDMS 03/20 20:06 Order name: NT PRO-BNP EDMS 03/20 20:06 Order name: NT PRO-BNP EDMS 03/20 20:06 Order name: Troponin I EDMS 03/20 20:06 Order name: Troponin I EDMS 03/20 20:06 Order name: Troponin I EDMS 03/20 20:06 Order name: Troponin I EDMS 03/20 20:07 Order name: Echo with Doppler EDMS 03/20 20:07 Order name: Echo with Doppler EDMS 03/20 20:07 Order name: NT PRO-BNP EDMS 03/20 20:07 Order name: Procalcitonin EDMS 03/20 20:07 Order name: Hemoglobin A1c EDMS 03/20 20:07 Order name: Lactate EDMS 03/21 00:33 Order name: Glucose, Ancillary Testing EDMS 03/21 02:35 Order name: Glucose, Ancillary Testing EDMS 03/21 07:26 Order name: Glucose, Ancillary Testing EDMS 03/21 09:06 Order name: Glucose, Ancillary Testing EDMS 03/21 13:11 Order name: Glucose, Ancillary Testing EDMS 03/21 16:45 Order name: Glucose, Ancillary Testing EDIL 03/21 19:54 Order name: Glucose, Ancillary Testing EDIL 03/22 03:08 Order name: CBC with Automated Diff EDIL 03/22 03:21 Order name: Glucose, Ancillary Testing EDIL 03/22 03:34 Order name: Comprehensive Metabolic Panel EDIL 03/22 03:34 Order name: Magnesium EDIL 03/20 15:18 Order name: Cardiac monitoring; Complete Time: 15:39 kdr 03/20 15:18 Order name: EKG - Nurse/Tech; Complete Time: 16:36 kdr 03/20 15:18 Order name: IV Saline Lock - Large Bore; Complete Time: 15:39 kdr 03/20 15:18 Order name: Labs collected and sent; Complete Time: 15:39 kdr 03/20 15:18 Order name: O2 Per Protocol; Complete Time: 15:39 kdr 03/20 15:18 Order name: O2 Sat Monitoring; Complete Time: 15:39 kdr 03/20 15:18 Order name: Urine Dipstick-Ancillary (obtain specimen); Complete Time: 16:36 [facility] 03/20 20:06 Order name: Heart Healthy EDIL EC:30 Rate is 61 beats/min. Rhythm is regular, Normal Sinus Rhythm with No ectopy. QRS [place] kdr is Normal. AL interval is normal. QRS interval is normal. QT interval is normal. Clinical impression: Normal ECG. Administered Medications: 16:00 Drug: NS 0.9% (30 ml/kg) 30 ml/kg Route: IV; Rate: bolus; Site: left antecubital; [facility] 03/21 00:20 Follow up: Response: No adverse reaction; IV Status: Completed infusion [facility] 03/20 16:43 Drug: Rocephin - (cefTRIAXone) 2 grams Route: IVPB; Infused Over: 30 mins; Site: left [facility] antecubital; 18:38 Follow up: Response: No adverse reaction [facility] 03/21 00:20 Follow up: Response: No adverse reaction; IV Status: Completed infusion 03/20 18:25 Drug: vancoMYCIN 1 grams Route: IVPB; Infused Over: 2 hrs; Site: left antecubital; [facility] 03/21 00:19 Follow up: Response: No adverse reaction; IV Status: Completed infusion [facility] Disposition Summary: 03/20/21 17:03 Hospitalization Ordered Hospitalization Status: Inpatient Admission kdr Condition: Fair kdr Problem: new kdr Symptoms: have improved kdr Bed/Room Type: Standard kdr Provider: Makenzie Mon(03/20/21 17:19) kdr Location: Telemetry/MedSurg (Inpatient)(03/22/21 05:49) mw Room Assignment: 209(03/22/21 05:49) mw Diagnosis - Other viral pneumonia - Covid kdr Forms: - Medication Reconciliation Form kdr - SBAR form kdr Signatures: Dispatcher [employer] EDMS Ghislaine Smiley bd Ebony Jeffrey RN RN mw Case Anthony MD MD kdr Albina Weaver RN SHREYA iw Raina Hernandez RN RN [facility] [employer] 5 Corrections: (The following items were deleted from the chart) 03/20 17:19 17:03 Bal Greene kdr kdr 17:49 17:27 Chest For PE Angio+CT.RAD.BRZ ordered. EDMS EDMS 19:49 17:03 Telemetry/MedSurg (Inpatient) kdr mw 19:49 17:03 kdr mw 03/21 14:02 01 19:49 [facility] ER HOLD mw bd 03/21 14:02 0102 19:49 ERHOLD- mw bd 03/21 14:38 14:02 Telemetry/MedSurg (Inpatient) bd iw 14:38 14:02 211 bd iw 15:01 14:38 [facility] ER HOLD iw bd 15:01 14:38 ERHOLD- iw bd 15:03 15:01 Telemetry/MedSurg (Inpatient) bd bd 15:03 15:01 211 bd bd 03/22 05:49 03 15:03 [facility] ER HOLD bd mw 03/22 05:49 03/21 15:03 ERHOLD- bd mw
--- NOTE | 2021-03-20 18:10 | RAD REPORT ---
EXAM DESCRIPTION: CT - Thorax Wo Con - 03/20/2021 5:57 pm CLINICAL HISTORY: SOB COMPARISON: No comparisons FINDINGS: Chest Wall: No suspicious thyroid nodules or pathologic lymphadenopathy. Lungs: Multifocal nodular airspace disease with consolidation in the lower lungs bilaterally. Pleura: Small bilateral pleural effusions. Mediastinum/jessee: No pathologic lymphadenopathy. Pulmonary arteries/Aorta: Limited evaluation without contrast. No aortic aneurysm. Heart: No significant pericardial effusion. Normal heart size. Coronary artery disease. Upper abdomen: Small volume of ascites. Bones: No acute abnormality. All CT scans are performed using dose optimization technique as appropriate and may include automated exposure control or mA/KV adjustment according to patient size. IMPRESSION: Patchy nodular and basilar consolidative airspace disease with small pleural effusions l ikely multifocal pneumonia. The findings would be atypical for Covid-19 pneumonia. Coexisting pulmona ry edema is within the differential as well. Small volume of ascites which is nonspecific.
[2021-03-20] MEDS ORDERED: VANCOMYCIN 1 GM/VIAL ONE (18:20)
[2021-03-20] MEDS ORDERED: NA CHLORIDE 0.9% 250 ML ONE (18:21)
[2021-03-20] MEDS ORDERED: ONDANSETRON 4 MG/2 ML VIAL IV PRN (20:01)
[2021-03-20] MEDS ORDERED: NA CHLORIDE 0.9% 1,000 ML IV SCH (21:00)
[2021-03-20] MEDS ORDERED: Levofloxacin500mg IV 500 MG/100 ML BAG IV SCH ×2 (21:00→23:45)
--- NOTE | 2021-03-20 22:37 | P.HP ---
Certification for Inpatient Patient admitted to: Inpatient With expected LOS: >2 Midnights Patient will require the following post-hospital care: None Practitioner: I am a practitioner with admitting privileges, knowledge of patient current condition, hospital course, and medical plan of care. Services: Services provided to patient in accordance with Admission requirements found in Title 42 Section 412.3 of the Code of Federal Regulations Patient History Date of Service: 03/20/21 Reason for admission: Shortness of breath History of Present Illness: Patient is a 50-year-old gentlemen who came to the hospital with hypoxemia. Patient has been having difficulty breathing for the last 48 hrs. Patient has been getting progressively worse. Patient has been getting more short of breath with a persistent cough and exertion. Patient also has been having fever shakes and chills. Patient also with cough with yellowish sputum production. Patient felt like he may have COVID-19 pneumonia. He was tested but he was negative. EMS was called out to the house and his oxygen saturations were 50%. Patient was placed on a non-rebreather. His oxygen saturations are 90%. Patient was admitted for further evaluation. Allergies No Known Allergies Allergy (Unverified 03/20/21 20:23) - Past Medical/Surgical History Past Medical History: Patient denies medical history Past Surgical History: Patient denies surgical history - Family History Father Family History: Reviewed- Non-Contributory - Social History Smoking Status: Former smoker Alcohol use: No CD- Drugs: No Review of Systems 10-point ROS is otherwise unremarkable Physical Examination - Vital Signs Temperature: 99 F Blood Pressure: 110/70 Pulse: 110 Respirations: 22 Pulse Ox (%): 90 - Physical Exam General: Alert, In no apparent distress, Oriented x3 HEENT: Atraumatic, PERRLA, Mucous membr. moist/pink, EOMI, Sclerae nonicteric Neck: Supple, 2+ carotid pulse no bruit, No LAD, Without JVD or thyroid abnormality Respiratory: Diminished, Rhonchi/gurgles Cardiovascular: Regular rate/rhythm, Normal S1 S2, No murmurs Gastrointestinal: Normal bowel sounds, Soft and benign, Non-distended, No t enderness Musculoskeletal: No clubbing, No swelling, No tenderness Integumentary: No rashes Neurological: Normal gait, Normal speech, Normal strength at 5/5 x4 extr, Normal tone, Sensation intact, Cranial nerves 3-12 intact, Normal affect Lymphatics: No axilla or inguinal lymphadenopathy - Studies Laboratory Data (last 24 hrs) 03/20/21 15:10: PT 15.1 H, INR 1.31, APTT 37.5 H 03/20/21 15:10: WBC 9.30, Hgb 12.7 L, Hct 38.2 L, Plt Count 183 03/20/21 15:10: Sodium 127 L, Potassium 4.3, BUN 53 H, Creatinine 3.02 H, Glucose 132 H, Total Bilirubin 0.3, AST 27, ALT 75, Alkaline Phosphatase 138 H, Amylase 46, Lipase 94 Assessment & Plan - Problems (Diagnosis) (1) Multifocal pneumonia Current Visit: Yes Status: Acute (2) Hypoxemia Current Visit: Yes Status: Acute (3) Acute kidney injury Current Visit: Yes Status: Acute (4) Hyponatremia Current Visit: Yes Status: Acute (5) Elevated procalcitonin Current Visit: Yes Status: Acute - Plan 1. Continue with IV antibiotics 2. Awaiting sputum and blood culture 3. Repeat chest x-ray 4. Monitor renal function closely; nephrology consultation 5. Appreciate pulmonary consultation 6. Continue with nebs as needed 7. O2 per protocol 8. Continue with gentle hydration 9. Repeat labs including CBC and renal function in a.m. 10. GI and DVT prophylaxis Discharge Plan: Home Plan to discharge in: Greater than 2 days - Advance Directives Does patient have a Living Will: No Does patient have a Durable POA for Healthcare: No - Code Status/Comfort Care Code Status Assessed: Yes Code Status: Full Code Critical Care: No Time Spent Managing PTS Care (In Minutes): 45
[2021-03-20] MEDS ORDERED: NA CHLORIDE 0.9% 1,000 ML ONE (23:52)
[2021-03-20] MEDS ORDERED: HEPARIN 5000 UNIT/ML 1 ML VIAL ONE (23:52)
[2021-03-20] MEDS ORDERED: PIPERACIL/TAZO 3.375 GM VIAL IV ONE (23:53)
[2021-03-20] MEDS: HEPARIN 5000 UNIT/ML 1 ML VIAL SQ SCH (23:59)
[2021-03-21] MEDS: PIPER TAZO 3.375 GM in NA CHLORIDE 0.9% 100 ML IV SCH ×3 (00:07→19:58)
[2021-03-21] MEDS ORDERED: IPRATROPIUM BROM 0.5MG/2.5ML ONE (01:52)
[2021-03-21] MEDS ORDERED: ALBUTEROL 2.5 MG/3 ML NEB SOL ONE (01:52)
[2021-03-21] MEDS ORDERED: IPRATROPIUM BROM 0.5MG/2.5ML NEB SCH (02:00)
[2021-03-21] MEDS ORDERED: ALBUTEROL 2.5 MG/3 ML NEB SOL NEB SCH (02:00)
[2021-03-21 03:52] LABS: Hematocrit 40.1 % (39.6-49.0); Lymphocytes % 8.6 % (15.3-44.8); RBC Red Blood Cell Count 4.36 M/uL (4.33-5.43)
[2021-03-21 04:12] LABS: Albumin 2.9 g/dL (3.4-5.0); Bilirubin Total 0.3 mg/dL (0.2-1.0); Magnesium 2.1 mg/dL (1.8-2.4); Protein, Total 7.3 g/dL (6.4-8.2); Troponin I 0.03 ng/mL (0.0-0.045)
[2021-03-21] MEDS ORDERED: GLUCAGON 1 MG/VIAL IM PRN (07:09)
[2021-03-21] MEDS ORDERED: D50W 25 GM/50 ML SYRINGE IV PRN (07:09)
[2021-03-21] MEDS ORDERED: ALBUTEROL 2.5 MG/3 ML NEB SOL NEB PRN (07:10)
[2021-03-21] MEDS ORDERED: IPRATROPIUM BROM 0.5MG/2.5ML NEB PRN (07:11)
--- NOTE | 2021-03-21 07:17 | P.PN ---
Subjective Date of Service: 03/21/21 Primary Care Provider: Dr. Swann Chief Complaint: Shortness of breath Subjective: Other (Patient remains on BiPAP.) Physical Examination - Vital Signs Temperature: 99 F Blood Pressure: 110/70 Pulse: 110 Respirations: 22 Pulse Ox (%): 90 - Studies Laboratory Data (last 24 hrs) 03/20/21 15:10: PT 15.1 H, INR 1.31, APTT 37.5 H 03/20/21 15:10: WBC 9.30, Hgb 12.7 L, Hct 38.2 L, Plt Count 183 03/20/21 15:10: Sodium 127 L, Potassium 4.3, BUN 53 H, Creatinine 3.02 H, Glucose 132 H, Total Bilirubin 0.3, AST 27, ALT 75, Alkaline Phosphatase 138 H, Amylase 46, Lipase 94 Assessment & Plan Discharge Plan: Home Plan to discharge in: Greater than 2 days Physician Review Additional Text: COVID: Negative Influenza: Negative CXR: COMPARISON: Chest Pa And Lat (2 Views) dated 04/02/2018; Abdomen Acute Series dated 05/30/2017 FINDINGS: Lines: None. Lungs: Moderate multifocal airspace disease which is partially consolidative in the lung bases. Pleural: No significant pleural effusions or pneumothorax. Cardiac: The heart size is within normal limits. Bones: No acute fractures. IMPRESSION: Moderate multifocal airspace disease concerning for multifocal pneumonia including Covid-19. CT scan: COMPARISON: No comparisons FINDINGS: Chest Wall: No suspicious thyroid nodules or pathologic lymphadenopathy. Lungs: Multifocal nodular airspace disease with consolidation in the lower lungs bilaterally. Pleura: Small bilateral pleural effusions. Mediastinum/jessee: No pathologic lymphadenopathy. Pulmonary arteries/Aorta: Limited evaluation without contrast. No aortic aneurysm. Heart: No significant pericardial effusion. Normal heart size. Coronary artery disease. Upper abdomen: Small volume of ascites. Bones: No acute abnormality. All CT scans are performed using dose optimization technique as appropriate and may include automated exposure control or mA/KV adjustment according to patient size. IMPRESSION: Patchy nodular and basilar consolidative airspace disease with small pleural effusions likely multifocal pneumonia. The findings would be atypical for Covid-19 pneumonia. Coexisting pulmonary edema is within the differential as well. Small volume of ascites which is nonspecific. Physical Exam General: Alert, In no apparent distress, Oriented x3 HEENT: Mouth dry Respiratory: Diminished to the bases. Currently on BiPAP 100% Cardiovascular: Regular rate/rhythm, Normal S1 S2, No murmurs Gastrointestinal: Normal bowel sounds, Soft and benign, Non-distended, No tenderness Musculoskeletal: No clubbing, No swelling, No tenderness Integumentary: No rashes Neurological: Normal gait, Normal speech, Normal strength at 5/5 x4 extr, Normal tone, Sensation intact, Cranial nerves 3-12 intact, Normal affect Lymphatics: No axilla or inguinal lymphadenopathy Impression: Hypoxia with acute respiratory failure secondary to multifocal pneumonia with small pleural effusions Acute renal insufficiency, dehydration 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 Blood and sputum cultures obtained. Spoke with pulmonology. Pulmonology added steroids. Patient p continuing off BiPAP. Continue IV fluids. Case also discussed with nephrology. Restart home medication for blood pressure. Continue monitor closely. Case discussed at length with . wanted patient to be transferred. Patient does not meet criteria for transfer at this time. Plast transfer would be difficult. We will continue to monitor closely. We will continue to reassess. Will obtain echocardiogram. We will continue to reassess. Recheck chest x-ray tomorrow. Acute renal insufficiency, dehydration:Continue with IV fluids. Spoke with nephrology. Continue to monitor closely. 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 Change to NS if BS is greater than 200. Accuchecks and sliding scale. HTN: Restart home medicationNorvasc and carvedilol. DM Neuropathy: Obtain a verify home medication. COPD: Suspect underlying COPD. IV steroid added. Continue Brovana, Atrovent and albuterol.. Tobacco abuse:Will monitor. CODE STATUS: Full code DVT prophylaxis: Lovenox Advance care minutes: Home at discharge Time Spent Managing Pts Care (In Minutes): 55
[2021-03-21] MEDS ORDERED: D5 0.9 NS 1,000 ML IV ONE (07:18)
[2021-03-21] MEDS: INSULIN -REGULAR HUMAN 50 UNIT/0.5 ML ML SQ SCH ×3 (07:23→19:59)
[2021-03-21] MEDS ORDERED: ARFORMOTEROL TARTRATE 15 MCG/2 ML VIAL.NEB ONE ×2 (07:58→20:38)
[2021-03-21] MEDS ORDERED: D5 0.9 NS 1,000 ML IV SCH (08:00)
[2021-03-21] MEDS: ARFORMOTEROL TARTRATE 15 MCG/2 ML VIAL.NEB NEB SCH ×2 (08:06→20:40)
[2021-03-21] MEDS: HEPARIN 5000 UNIT/ML 1 ML VIAL SQ SCH ×2 (08:28→19:50)
--- NOTE | 2021-03-21 11:07 | P.CNS ---
Date of Consult: 03/21/21 Reason for Consult: Respiratory failure from pneumonia Chief Complaint: Shortness of breath History of Present Illness: Patient is 50 years of age. With respiratory failure bilateral pneumonia been having some fever chills and shakes since last has become progressively worse tested negative for coronavirus is currently on BiPAP no prior history of cardiopulmonary problems before he is alert responsive cooperative Allergies No Known Allergies Allergy (Unverified 03/20/21 20:23) - Past Medical/Surgical History -: Anxiety -: Hypertension -: Diabetes -: Peripheral neuropathy - Family History Father Family History: Reviewed- Non-Contributory - Social History Alcohol use: No CD- Drugs: No Review of Systems General: Fever, As per HPI (On BiPAP alert responsive cooperative), Unremarkable Respiratory: Cough, Shortness of Breath Physical Examination Temp Pulse Resp BP Pulse Ox 99 F 110 H 22 H 110/70 90 L 03/21/21 07:17 03/21/21 07:17 03/21/21 07:17 03/21/21 07:17 03/21/21 07:17 General: Alert, Oriented x3, Cooperative Respiratory: Crackles/rales (Bilateral) Cardiovascular: No edema, Regular rate/rhythm Laboratory Data (last 24 hrs) 03/20/21 15:10: PT 15.1 H, INR 1.31, APTT 37.5 H 03/20/21 15:10: WBC 9.30, Hgb 12.7 L, Hct 38.2 L, Plt Count 183 03/20/21 15:10: Sodium 127 L, Potassium 4.3, BUN 53 H, Creatinine 3.02 H, Glucose 132 H, Total Bilirubin 0.3, AST 27, ALT 75, Alkaline Phosphatase 138 H, Amylase 46, Lipase 94 - Problems (1) Multifocal pneumonia Current Visit: Yes Status: Acute Plan: Patient is 50 years of age admitted with bilateral pneumonia pleural effusion left greater than right he may have a pleural effusion on the right side white count is elevated patient is on levofloxacin and Zosyn renal function is improving on IV fluids very alert responsive continue with present treatment p atient is requiring 100% FiO2 for now trial of steroids due to severity of pneumonia
[2021-03-21] MEDS: METHYLPREDNISOLONE 125 MG INJ IV SCH ×2 (11:08→20:01)
--- NOTE | 2021-03-21 11:32 | P.CNS ---
Date of Consult: 03/21/21 Reason for Consult: ALYSON/ CKD Requesting Physician: Mario Mandujano Chief Complaint: Shortness of breath History of Present Illness: Patient is a 50-year-old gentlemen who came to the hospital with hypoxemia. Patient has been having difficulty breathing for the last 48 hrs. Patient has been getting progressively worse. Patient has been getting more short of breath with a persistent cough and exertion. Patient also has been having fever shakes and chills. Patient also with cough with yellowish sputum production. Patient felt like he may have COVID-19 pneumonia. He was tested but he was negative. EMS was called out to the house and his oxygen saturations were 50%. Patient was placed on a non-rebreather. His oxygen saturations are 90%. Patient was admitted for further evaluation. 16:31 This 50 yrs old Male presents to ER via EMS with complaints of Low O2. kdr 16:31 The patient has shortness of breath at rest, with light activity. Onset: The kdr symptoms/episode began/occurred gradually, 2 day(s) ago. Duration: The symptoms are continuous, and are steadily getting worse. The patient's shortness of breath is aggravated by coughing, exertion, light activity. Associated signs and symptoms: Pertinent positives: fever, Pertinent negatives: chest pain, non- productive cough, productive cough, diaphoresis, dizziness, hemoptysis, loss of consciousness, nausea, numbness in extremities. Severity of symptoms: At their worst the symptoms were severe incapacitating just prior to arrival, in the emergency department the symptoms are unchanged. The patient has not experienced similar symptoms in the past. The patient has not recently seen a physician. 16:33 Custom when he have to go to the has been tested twice in the recent days for Covid. He kdr was negative on both test. Over the last 2 days he has become increasingly short of breath. When EMS arrived at his home, his saturation was noted to be 56% on room air. He was then put on a nonrebreather at 10 L/min and his saturation improved into the mid 80s.. Allergies No Known Allergies Allergy (Unverified 03/20/21 20:23) Home medications list reviewed: Yes Home Medications: Amlodipine [Norvasc*] 10 mg PO DAILY 03/21/21 Carvedilol [Coreg] 12.5 mg PO DAILY 03/21/21 Esomeprazole Magnesium [Nexium] 15 mg WMP 03/21/21 Insulin Aspart (Niacinamide) [Fiasp 100 Unit/ml Vial] See Protocol SQ TID 03/21/21 Insulin Glargine,Hum.rec.anlog [Basaglar Kwikpen U-100] 13 unit SQ DAILY 03/21/21 Tapentadol HCl [Nucynta] 100 mg PO TID 03/21/21 clonazePAM [Klonopin] 0.5 mg PO TID 03/21/21 - Past Medical/Surgical History -: Anxiety -: Hypertension -: Diabetes -: Peripheral neuropathy - Family History Father Family History: Reviewed- Non-Contributory - Social History Alcohol use: No CD- Drugs: No Review of Systems 10-point ROS is otherwise unremarkable General: Weakness, Malaise Respiratory: Cough, Shortness of Breath Physical Examination Temp Pulse Resp BP Pulse Ox 99 F 110 H 22 H 110/70 90 L 03/21/21 07:17 03/21/21 07:17 03/21/21 07:17 03/21/21 07:17 03/21/21 07:17 General: Oriented x3, Cooperative, Mild distress HEENT: Atraumatic Neck: Supple Respiratory: Diminished Cardiovascular: Regular rate/rhythm Gastrointestinal: Non-distended Musculoskeletal: No clubbing, No contractures Integumentary: No rashes, No cyanosis Neurological: Normal speech Laboratory Data (last 24 hrs) 03/20/21 15:10: PT 15.1 H, INR 1.31, APTT 37.5 H 03/20/21 15:10: WBC 9.30, Hgb 12.7 L, Hct 38.2 L, Plt Count 183 03/20/21 15:10: Sodium 127 L, Potassium 4.3, BUN 53 H, Creatinine 3.02 H, Glucose 132 H, Total Bilirubin 0.3, AST 27, ALT 75, Alkaline Phosphatase 138 H, Amylase 46, Lipase 94 Imagings Data: EXAM DESCRIPTION: CT - Thorax Wo Con - 03/20/2021 5:57 pm CLINICAL HISTORY: SOB COMPARISON: No comparisons FINDINGS: Chest Wall: No suspicious thyroid nodules or pathologic lymphadenopathy. Lungs: Multifocal nodular airspace disease with consolidation in the lower lungs bilaterally. Pleura: Small bilateral pleural effusions. Mediastinum/jessee: No pathologic lymphadenopathy. Pulmonary arteries/Aorta: Limited evaluation without contrast. No aortic aneurysm. Heart: No significant pericardial effusion. Normal heart size. Coronary artery disease. Upper abdomen: Small volume of ascites. Bones: No acute abnormality. All CT scans are performed using dose optimization technique as appropriate and may include automated exposure control or mA/KV adjustment according to patient size. IMPRESSION: Patchy nodular and basilar consolidative airspace disease with small pleural effusions likely multifocal pneumonia. The findings would be atypical for Covid-19 pneumonia. Coexisting pulmonary edema is within the differential as well. Small volume of ascites which is nonspecific. EXAM DESCRIPTION: RAD - Chest Single View - 03/20/2021 3:51 pm CLINICAL HISTORY: DYSPNEa COMPARISON: Chest Pa And Lat (2 Views) dated 04/02/2018; Abdomen Acute Series dated 05/30/2017 FINDINGS: Lines: None. Lungs: Moderate multifocal airspace disease which is partially consolidative in the lung bases. Pleural: No significant pleural effusions or pneumothorax. Cardiac: The heart size is within normal limits. Bones: No acute fractures. Other: IMPRESSION: Moderate multifocal airspace disease concerning for multifocal pneumonia including Covid-19. Conclusions/Impression: ALYSON in the setting of hypovolemia CKD III? 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 Case reviewed with Dr. Mandujano Critical Care: Yes (>30min)
[2021-03-21] MEDS ORDERED: METHYLPREDNISOLONE 40 MG INJ ONE ×2 (13:07→19:49)
[2021-03-21] MEDS ORDERED: ACETAMINOPHEN 500 MG TAB ONE (13:07)
[2021-03-21] MEDS: ACETAMINOPHEN 500 MG TAB PO PRN (13:12)
[2021-03-21] MEDS ORDERED: NA CHLORIDE 0.9% 1,000 ML ONE ×2 (17:35→19:50)
[2021-03-21] MEDS ORDERED: NA CHLORIDE 0.9% 1,000 ML IV SCH (18:00)
[2021-03-21] MEDS ORDERED: INSULIN -REGULAR HUMAN 50 UNIT/0.5 ML ML ONE (19:47)
[2021-03-21] MEDS ORDERED: HEPARIN 5000 UNIT/ML 1 ML VIAL ONE (19:49)
[2021-03-21] MEDS ORDERED: NA CHLORIDE 0.9% 100 ML ONE (19:49)
[2021-03-21] MEDS ORDERED: PIPERACIL/TAZO 3.375 GM VIAL IV ONE (19:50)
[2021-03-21] MEDS: carvediloL 12.5 MG TAB PO SCH (19:58)
[2021-03-22 02:58] LABS: Absolute Lymphocytes (CBC) 0.7 K/uL (0.7-4.9); Hematocrit 33.7 % (39.6-49.0); Lymphocytes % 11.7 % (15.3-44.8); MPV 9.6 fL (7.6-11.3); RBC Red Blood Cell Count 3.65 M/uL (4.33-5.43)
[2021-03-22] MEDS: INSULIN -REGULAR HUMAN 50 UNIT/0.5 ML ML SQ SCH ×5 (03:07→21:56)
[2021-03-22] MEDS ORDERED: INSULIN -REGULAR HUMAN 50 UNIT/0.5 ML ML ONE (03:08)
[2021-03-22] MEDS ORDERED: PIPERACIL/TAZO 3.375 GM VIAL IV ONE (03:09)
[2021-03-22] MEDS ORDERED: NA CHLORIDE 0.9% 100 ML ONE (03:09)
[2021-03-22] MEDS: PIPER TAZO 3.375 GM in NA CHLORIDE 0.9% 100 ML IV SCH ×2 (03:10→08:18)
[2021-03-22 03:33] LABS: Albumin 2.1 g/dL (3.4-5.0); Bilirubin Total 0.3 mg/dL (0.2-1.0); Magnesium 2.3 mg/dL (1.8-2.4); Potassium 4.6 mmol/L (3.5-5.1); Protein, Total 5.8 g/dL (6.4-8.2); Troponin I 0.02 ng/mL (0.0-0.045)
--- NOTE | 2021-03-22 06:18 | P.PN ---
Subjective Date of Service: 03/22/21 Primary Care Provider: Dr. Swann Chief Complaint: Shortness of breath Subjective: Improving Physical Examination - Vital Signs Temperature: 99 F Blood Pressure: 110/70 Pulse: 110 Respirations: 22 Pulse Ox (%): 90 Assessment & Plan Discharge Plan: Home Plan to discharge in: Greater than 2 days Physician Review Additional Text: COVID: Negative Influenza: Negative CXR: COMPARISON: Chest Pa And Lat (2 Views) dated 04/02/2018; Abdomen Acute Series dated 05/30/2017 FINDINGS: Lines: None. Lungs: Moderate multifocal airspace disease which is partially consolidative in the lung bases. Pleural: No significant pleural effusions or pneumothorax. Cardiac: The heart size is within normal limits. Bones: No acute fractures. IMPRESSION: Moderate multifocal airspace disease concerning for multifocal pneumonia including Covid-19. CT scan: COMPARISON: No comparisons FINDINGS: Chest Wall: No suspicious thyroid nodules or pathologic lymphadenopathy. Lungs: Multifocal nodular airspace disease with consolidation in the lower lungs bilaterally. Pleura: Small bilateral pleural effusions. Mediastinum/jessee: No pathologic lymphadenopathy. Pulmonary arteries/Aorta: Limited evaluation without contrast. No aortic aneurysm. Heart: No significant pericardial effusion. Normal heart size. Coronary artery disease. Upper abdomen: Small volume of ascites. Bones: No acute abnormality. All CT scans are performed using dose optimization technique as appropriate and may include automated exposure control or mA/KV adjustment according to patient size. IMPRESSION: Patchy nodular and basilar consolidative airspace disease with small pleural effusions likely multifocal pneumonia. The findings would be atypical for Covid-19 pneumonia. Coexisting pulmonary edema is within the differential as well. Small volume of ascites which is nonspecific. Follow up CXR 03/22/2021: COMPARISON: March 20, 2021 FINDINGS: Overall no significant change in moderate bilateral pulmonary opacities probably pneumonia. Heart is normal size ECHO: MEASUREMENTS (cm) DIASTOLIC (NORMALS) SYSTOLIC (NORMALS) IVSd 0.8 (0.6-1.2) LA Diam 3.0 (1.9-4.0) LVEF 65% LVIDd 4.1 (3.5-5.7) LVIDs 2.7 (2.0-3.5) %FS 35% LVPWd 0.9 (0.6-1.2) Ao Diam 2.4 (2.0-3.7) 2 DIMENSIONAL ASSESSMENT: RIGHT ATRIUM: NORMAL LEFT ATRIUM: NORMAL RIGHT VENTRICLE: NORMAL LEFT VENTRICLE: NORMAL TRICUSPID VALVE: NORMAL MITRAL VALVE: NORMAL PULMONIC VALVE: NORMAL AORTIC VALVE: NORMAL PERICARDIAL EFFUSION: NONE AORTIC ROOT: NORMAL LEFT VENTRICULAR WALL MOTION: NORMAL DOPPLER/COLOR FLOW: MILD TRICUSPID REGURGITATION. COMMENTS: MILD TRICUSPID REGURGITATION. NORMAL LEFT VENTRICULAR SIZE AND FUNCTION. NORMAL WALL MOTION ABNORMALITY. NO EFFUSION Physical Exam General: Alert, In no apparent distress, Oriented x3 HEENT: Mouth dry Respiratory: Bilateral. Patient remains on BiPAP but less oxygen percent noted. 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 Patient remains on Levaquin. IV Zosyn discontinued. continue wean off BiPAP. Pulmonology discontinued IV fluids. Pulmonology added Lasix. Will monitor closely. Anticipate continued improvement. Echocardiogram unremarkable. Continue to monitor closely. Anticipate improvement over the next several days. Acute renal insufficiency, dehydration: Renal function improved. Pulmonology discontinued IV fluids and added Lasix. Will monitor closely.. Spoke with nephrology. Continue to monitor closely. 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 HTN: Continue home medicationNorvasc and carvedilol. DM Neuropathy: We will provide medication for pain COPD: Suspect underlying COPD. IV steroid added. Continue Brovana, Atrovent and albuterol.. Tobacco abuse:Will monitor. Anxiety: We will continue with medication as needed CODE STATUS: Full code DVT prophylaxis: Lovenox Advance care [id number] minutes: Home at discharge Time Spent Managing Pts Care (In Minutes): 55
[2021-03-22] MEDS: ARFORMOTEROL TARTRATE 15 MCG/2 ML VIAL.NEB NEB SCH ×2 (08:07→20:10)
[2021-03-22] MEDS: INSULIN GLARGINE 100 UNIT/ML SQ SCH ×2 (08:18→21:56)
[2021-03-22] MEDS: HEPARIN 5000 UNIT/ML 1 ML VIAL SQ SCH ×2 (08:19→21:59)
[2021-03-22] MEDS: AMLODIPINE 10 MG TAB PO SCH (08:19)
[2021-03-22] MEDS: carvediloL 12.5 MG TAB PO SCH ×2 (08:19→21:57)
[2021-03-22] MEDS: METHYLPREDNISOLONE 125 MG INJ IV SCH ×2 (08:19→21:55)
--- NOTE | 2021-03-22 08:27 | RAD REPORT ---
EXAM DESCRIPTION: [place] Single View03/22/2021 8:21 am CLINICAL HISTORY: Chest pain COMPARISON: March 20, 2021 FINDINGS: Overall no significant change in moderate bilateral pulmonary opacities probably pneumoni a. Heart is normal size
[2021-03-22] MEDS: FUROSEMIDE 40 MG/4 ML VIAL IV SCH (10:00)
[2021-03-22] MEDS: LORazepam 2 MG/ML VIAL IV PRN ×2 (11:22→17:22)
--- NOTE | 2021-03-22 11:28 | ECHO ---
HEIGHT: 5 ft 4 in WEIGHT: 120 lb 0 oz DATE OF STUDY: 03/22/[address]: Makenzie Mon MD 2-DIMENSIONAL: YES M.MODE: YES DOPPLER: YES COLOR FLOW: YES TDS: PORTABLE: DEFINITY: BUBBLE STUDY: DIAGNOSIS: CONGESTIVE HEART FAILURE CARDIAC HISTORY: CATHERIZATION: SURGERY: PROSTHETIC VALVE: PACEMAKER: MEASUREMENTS (cm) DIASTOLIC (NORMALS) SYSTOLIC (NORMALS) IVSd 0.8 (0.6-1.2) LA Diam 3.0 (1.9-4.0) LVEF 65% LVIDd 4.1 (3.5-5.7) LVIDs 2.7 (2.0-3.5) %FS 35% LVPWd 0.9 (0.6-1.2) Ao Diam 2.4 (2.0-3.7) 2 DIMENSIONAL ASSESSMENT: RIGHT ATRIUM: NORMAL LEFT ATRIUM: NORMAL RIGHT VENTRICLE: NORMAL LEFT VENTRICLE: NORMAL TRICUSPID VALVE: NORMAL MITRAL VALVE: NORMAL PULMONIC VALVE: NORMAL AORTIC VALVE: NORMAL PERICARDIAL EFFUSION: NONE AORTIC ROOT: NORMAL LEFT VENTRICULAR WALL MOTION: NORMAL DOPPLER/COLOR FLOW: MILD TRICUSPID REGURGITATION. COMMENTS: MILD TRICUSPID REGURGITATION. NORMAL LEFT VENTRICULAR SIZE AND FUNCTION. NORMAL WALL MOTION ABNORMALITY. NO EFFUSION TECHNOLOGIST: LOVELY SLOAN
[2021-03-22] MEDS ORDERED: IPRATROPIUM BROM 0.5MG/2.5ML NEB PRN (13:00)
[2021-03-22] MEDS ORDERED: ALBUTEROL 2.5 MG/3 ML NEB SOL NEB PRN (13:00)
--- NOTE | 2021-03-22 16:58 | P.PN ---
Subjective Date of Service: 03/22/21 Primary Care Provider: Dr. Swann Chief Complaint: Severe pneumonia Subjective: Improving (Feeling better Still requiring high conc of O2) Review of Systems General: Weakness Respiratory: Cough, Shortness of Breath Physical Examination - Vital Signs Temperature: 98.5 F Blood Pressure: 150/64 Pulse: 70 Respirations: 19 Pulse Ox (%): 91 - Physical Exam General: Alert, Oriented x3, Mild distress Respiratory: Crackles/rales, Rhonchi/gurgles Assessment & Plan - Problems (Diagnosis) (1) Multifocal pneumonia Current Visit: Yes Status: Acute Plan: AW severe pnsumonia/ Cultures neg/ DC Zosyn CW steroids/ Add IV lasix/ WBC normal./ Bilateral penumonia/Echo normal LV/ Req high conc of Fio2
[2021-03-22] MEDS ORDERED: Levofloxacin500mg IV 500 MG/100 ML BAG IV SCH (21:00)
[2021-03-22 21:34] VITALS: BMI 20.5
--- NOTE | 2021-03-22 22:32 | P.PN ---
Date of Service: 03/22/21 Vital Signs Temp Pulse Resp BP Pulse Ox 98.3 F 75 20 128/49 L 91 03/22/21 20:00 03/22/21 21:57 03/22/21 20:00 03/22/21 21:57 03/22/21 20:00 Medications Acetaminophen (Acetaminophen 500 Mg Tab) 500 mg PO Q4HP PRN PRN Reason: TEMP > 100' F OR MILD PAIN Last Admin: 03/21/21 13:12 Dose: 500 mg Documented by: Albuterol Sulfate (Albuterol 2.5 Mg/3 Ml Neb Constance) 2.5 mg NEB [id number] PRN PRN Reason: SHORTNESS OF BREATH Amlodipine Besylate (Amlodipine 10 Mg Tab) 10 mg PO DAILY [facility] Last Admin: 03/22/21 08:19 Dose: 10 mg Documented by: Arformoterol Tartrate (Arformoterol Tartrate 15 Mcg/2 Ml Vial.Neb) 15 mcg NEB BIDRESP [facility] Last Admin: 03/22/21 20:10 Dose: 15 mcg Documented by: Carvedilol (Carvedilol 12.5 Mg Tab) 12.5 mg PO BID VALENCIA Last Admin: 03/22/21 21:57 Dose: 12.5 mg Documented by: Clonazepam (Clonazepam 0.5 Mg Tab) 0.5 mg PO TID PRN PRN Reason: ANXIETY Dextrose (D50w 25 Gm/50 Ml Syringe) 12.5 gm IV PRN PRN; Protocol PRN Reason: HYPOGLYCEMIA Furosemide (Furosemide 40 Mg/4 Ml Vial) 40 mg IV DAILY [facility] Last Admin: 03/22/21 10:00 Dose: 40 mg Documented by: Glucagon (Glucagon 1 Mg/Vial) 1 mg IM 1X PRN; Protocol PRN Reason: HYPOGLYCEMIA Heparin Sodium (Porcine) (Heparin 5000 Unit/Ml 1 Ml Vial) 5,000 unit SQ Q12HR [facility] Last Admin: 03/22/21 21:59 Dose: 5,000 unit Documented by: Levofloxacin/Dextrose (Levaquin 500 Mg/100 Ml Ivpb) 500 mg in 100 mls @ 100 mls/hr IV Q48H VALENCIA; Protocol Last Admin: 03/22/21 21:57 Dose: 100 mls Documented by: Insulin Glargine (Insulin Glargine 100 Unit/Ml) 10 unit SQ BID [facility] Last Admin: 03/22/21 21:56 Dose: 10 unit Documented by: Insulin Human Regular (Insulin -Regular Human 50 Unit/0.5 Ml Ml) 0 unit SQ ACHS [facility]; Protocol Last Admin: 03/22/21 21:56 Dose: 2 unit Documented by: Ipratropium O[place]go (Ipratropium Brom 0.5mg/2.5ml) 0.5 mg NEB [id number] PRN PRN Reason: SHORTNESS OF BREATH Lorazepam (Lorazepam 2 Mg/Ml Vial) 0.5 mg IV TID PRN PRN Reason: AGITATION Last Admin: 03/22/21 17:22 Dose: 0.5 mg Documented by: Methylprednisolone Sodium Succinate (Methylprednisolone 125 Mg Inj) 80 mg IV Q12HR [facility] Last Admin: 03/22/21 21:55 Dose: 80 mg Documented by: Ondansetron HCl (Ondansetron 4 Mg/2 Ml Vial) 4 mg IV Q6HP PRN PRN Reason: NAUSEA / VOMITING Sodium Chloride (Flush Normal Saline 10 Ml) 10 ml IV BID [facility] Last Admin: 03/22/21 21:00 Dose: 10 ml Documented by: Microbiology Results 03/20/21 15:20 Blood - Blood Aerobic Blood Culture - Preliminary No growth in 24 hours. 03/20/21 15:20 Blood - Blood Anaerobic Blood Culture - Preliminary No growth in 24 hours. 03/20/21 15:10 Blood - Blood Aerobic Blood Culture - Preliminary No growth in 24 hours. 03/20/21 15:10 Blood - Blood Anaerobic Blood Culture - Preliminary No growth in 24 hours. Assessment/ Plan: Nephrology Dyspnea improving. Fair urine output. Poor appetite. No chest pain No acute events overnight Vitals, medications, blood work and imaging reviewed in the chart General: Oriented x3, Cooperative, Mild distress HEENT: Atraumatic Neck: Supple Respiratory: Diminished Cardiovascular: Regular rate/rhythm Gastrointestinal: Non-distended Musculoskeletal: No clubbing, No contractures Integumentary: No rashes, No cyanosis Neurological: Normal speech Laboratory Data (last 24 hrs) 03/20/21 15:10: PT 15.1 H, INR 1.31, APTT 37.5 H 03/20/21 15:10: WBC 9.30, Hgb 12.7 L, Hct 38.2 L, Plt Count 183 03/20/21 15:10: Sodium 127 L, Potassium 4.3, BUN 53 H, Creatinine 3.02 H, Glucose 132 H, Total Bilirubin 0.3, AST 27, ALT 75, Alkaline Phosphatase 138 H, Amylase 46, Lipase 94 Imagings Data: EXAM DESCRIPTION: CT - Thorax Wo Con - 03/20/2021 5:57 pm CLINICAL HISTORY: SOB COMPARISON: No comparisons FINDINGS: Chest Wall: No suspicious thyroid nodules or pathologic lymphadenopathy. Lungs: Multifocal nodular airspace disease with consolidation in the lower lungs bilaterally. Pleura: Small bilateral pleural effusions. Mediastinum/jessee: No pathologic lymphadenopathy. Pulmonary arteries/Aorta: Limited evaluation without contrast. No aortic aneurysm. Heart: No significant pericardial effusion. Normal heart size. Coronary artery disease. Upper abdomen: Small volume of ascites. Bones: No acute abnormality. All CT scans are performed using dose optimization technique as appropriate and may include automated exposure control or mA/KV adjustment according to patient size. IMPRESSION: Patchy nodular and basilar consolidative airspace disease with small pleural effusions likely multifocal pneumonia. The findings would be atypical for Covid-19 pneumonia. Coexisting pulmonary edema is within the differential as well. Small volume of ascites which is nonspecific. EXAM DESCRIPTION: RAD - Chest Single View - 03/20/2021 3:51 pm CLINICAL HISTORY: DYSPNEa COMPARISON: Chest Pa And Lat (2 Views) dated 04/02/2018; Abdomen Acute Series dated 05/30/2017 FINDINGS: Lines: None. Lungs: Moderate multifocal airspace disease which is partially consolidative in the lung bases. Pleural: No significant pleural effusions or pneumothorax. Cardiac: The heart size is within normal limits. Bones: No acute fractures. Other: IMPRESSION: Moderate multifocal airspace disease concerning for multifocal pneumonia including Covid-19. EXAM DESCRIPTION: RADChest Single View03/22/2021 8:21 am CLINICAL HISTORY: Chest pain COMPARISON: March 20, 2021 FINDINGS: Overall no significant change in moderate bilateral pulmonary opacities probably pneumonia. Heart is normal size Conclusions/Impression: ALYSON in the setting of hypovolemia CKD III? with proteinuria (Baseline serum creatinine 1.1-1.2) -No NSAIDs Hyponatremia -Encourage nutrition Hypocalcemia -Start calcitriol -Start cholecalciferol HTN with CKD -Continue Amlodipine -Continue Coreg Acute hypoxic respiratory failure Multifocal PNA -Continue Oxygen supplementation -Bipap prn -Continue abx DM I with CKD & Hyperglycemia & Polyneuropathy Hypoglycemia -RISS Moderate malnutrition -Start Nepro
[2021-03-23 04:29] LABS: Absolute Lymphocytes (CBC) 1.2 K/uL (0.7-4.9); Hematocrit 33.2 % (39.6-49.0); Lymphocytes % 9.2 % (15.3-44.8); MPV 9.4 fL (7.6-11.3); RBC Red Blood Cell Count 3.59 M/uL (4.33-5.43)
[2021-03-23 04:48] LABS: Albumin 2.4 g/dL (3.4-5.0); Bilirubin Total 0.3 mg/dL (0.2-1.0); Magnesium 2.3 mg/dL (1.8-2.4); Phosphorus 2.3 mg/dL (2.5-4.9); Potassium 4.1 mmol/L (3.5-5.1); Protein, Total 6.3 g/dL (6.4-8.2); Troponin I 0.02 ng/mL (0.0-0.045); Uric Acid 4.3 mg/dL (3.5-7.2)
--- NOTE | 2021-03-23 06:05 | P.PN ---
Subjective Date of Service: 03/23/21 Primary Care Provider: Dr. Swann Chief Complaint: Severe pneumonia Subjective: Improving (Currently on 10 L) Physical Examination - Vital Signs Temperature: 98.1 F Blood Pressure: 148/72 Pulse: 72 Respirations: 19 Pulse Ox (%): 96 Assessment & Plan Discharge Plan: Home Plan to discharge in: 48 Hours Physician Review Additional Text: COVID: Negative Influenza: Negative CXR: COMPARISON: Chest Pa And Lat (2 Views) dated 04/02/2018; Abdomen Acute Series dated 05/30/2017 FINDINGS: Lines: None. Lungs: Moderate multifocal airspace disease which is partially consolidative in the lung bases. Pleural: No significant pleural effusions or pneumothorax. Cardiac: The heart size is within normal limits. Bones: No acute fractures. IMPRESSION: Moderate multifocal airspace disease concerning for multifocal pneumonia including Covid-19. CT scan: COMPARISON: No comparisons FINDINGS: Chest Wall: No suspicious thyroid nodules or pathologic lymphadenopathy. Lungs: Multifocal nodular airspace disease with consolidation in the lower lungs bilaterally. Pleura: Small bilateral pleural effusions. Mediastinum/jessee: No pathologic lymphadenopathy. Pulmonary arteries/Aorta: Limited evaluation without contrast. No aortic aneurysm. Heart: No significant pericardial effusion. Normal heart size. Coronary artery disease. Upper abdomen: Small volume of ascites. Bones: No acute abnormality. All CT scans are performed using dose optimization technique as appropriate and may include automated exposure control or mA/KV adjustment according to patient size. IMPRESSION: Patchy nodular and basilar consolidative airspace disease with small pleural effusions likely multifocal pneumonia. The findings would be atypical for Covid-19 pneumonia. Coexisting pulmonary edema is within the differential as well. Small volume of ascites which is nonspecific. Follow up CXR 03/23/2021: COMPARISON: Chest Single View dated 03/22/2021; Chest Single View dated 03/20/2021; Chest Pa And Lat (2 Views) dated 04/02/2018; Abdomen Acute Series dated 05/30/2017 FINDINGS: Lines: None. Lungs: Multifocal bilateral airspace disease with improved aeration of the lung bases. Pleural: No significant pleural effusions or pneumothorax. Cardiac: The heart size is within normal limits. Bones: No acute fractures. IMPRESSION: Improved aeration of the lungs with decreased airspace disease in the lung bases. ECHO: MEASUREMENTS (cm) DIASTOLIC (NORMALS) SYSTOLIC (NORMALS) IVSd 0.8 (0.6-1.2) LA Diam 3.0 (1.9-4.0) LVEF 65% LVIDd 4.1 (3.5-5.7) LVIDs 2.7 (2.0-3.5) %FS 35% LVPWd 0.9 (0.6-1.2) Ao Diam 2.4 (2.0-3.7) 2 DIMENSIONAL ASSESSMENT: RIGHT ATRIUM: NORMAL LEFT ATRIUM: NORMAL RIGHT VENTRICLE: NORMAL LEFT VENTRICLE: NORMAL TRICUSPID VALVE: NORMAL MITRAL VALVE: NORMAL PULMONIC VALVE: NORMAL AORTIC VALVE: NORMAL PERICARDIAL EFFUSION: NONE AORTIC ROOT: NORMAL LEFT VENTRICULAR WALL MOTION: NORMAL DOPPLER/COLOR FLOW: MILD TRICUSPID REGURGITATION. COMMENTS: MILD TRICUSPID REGURGITATION. NORMAL LEFT VENTRICULAR SIZE AND FUNCTION. NORMAL WALL MOTION ABNORMALITY. NO EFFUSION Physical Exam General: Alert, In no apparent distress, Oriented x3 HEENT: Mouth dry Respiratory: No air movement. Currently on 15 L. No longer on BiPAP. 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 No longer on BiPAP. Currently on 15 L per nasal cannula. Continue to wean off oxygen to maintain sats above 93%. Encourage ambulation. Continue Levaquin. Continue IV Lasix. Echocardiogram shows normal ejection fraction 65%. Will discuss with pulmonology to see if CT chest to rule out pulmonary embolus as family is inquiring. Physical therapy to ambulate. Anticipate continued improvement. Acute renal insufficiency, dehydration: Renal function improved. Continue IV Lasix. Will discuss further with nephrology. 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 We will continue to adjust for better control. Continue Accuchecks and sliding scale. HTN: Blood pressure stable. Continue home medicationNorvasc and carvedilol. DM Neuropathy: Provide medication for pain as needed COPD: Suspect underlying COPD. Continue oral steroid. Continue Atrovent and albuterol. Will discuss with pulmonology.. Tobacco abuse: We will provide education on cessation Anxiety: Continue with medication as needed Seasonal allergies: Start Flonase CODE STATUS: Full code DVT prophylaxis: Lovenox Advance care [id number] minutes: Home at discharge Time Spent Managing Pts Care (In Minutes): 55
--- NOTE | 2021-03-23 07:42 | RAD REPORT ---
EXAM DESCRIPTION: RAD - Chest Single View - 03/23/2021 5:23 am CLINICAL HISTORY: follow up pneumonia COMPARISON: Chest Single View dated 03/22/2021; Chest Single View dated 03/20/2021; Chest Pa And Lat (2 Views) dated 04/02/2018; Abdomen Acute Series dated 05/30/2017 FINDINGS: Lines: None. Lungs: Multifocal bilateral airspace disease with improved aeration of the lung bases. Pleural: No significant pleural effusions or pneumothorax. Cardiac: The heart size is within normal limits. Bones: No acute fractures. Other: IMPRESSION: Improved aeration of the lungs with decreased airspace disease in the lung bases.
[2021-03-23] MEDS: ARFORMOTEROL TARTRATE 15 MCG/2 ML VIAL.NEB NEB SCH (08:00)
[2021-03-23] MEDS: INSULIN -REGULAR HUMAN 50 UNIT/0.5 ML ML SQ SCH ×4 (08:15→22:13)
[2021-03-23] MEDS: INSULIN GLARGINE 100 UNIT/ML SQ SCH ×2 (08:15→22:14)
--- NOTE | 2021-03-23 08:23 | P.PN ---
Subjective Date of Service: 03/23/21 Primary Care Provider: Dr. Swann Chief Complaint: Severe pneumonia Subjective: Improving (Doign better CXRY improved) Doign much better Review of Systems General: Weakness Respiratory: Shortness of Breath Physical Examination - Vital Signs Temperature: 98.1 F Blood Pressure: 148/72 Pulse: 72 Respirations: 19 Pulse Ox (%): 96 - Physical Exam General: Alert, In no apparent distress, Oriented x3 Respiratory: Crackles/rales Cardiovascular: No edema Assessment & Plan - Problems (Diagnosis) (1) Multifocal pneumonia Current Visit: Yes Status: Acute Plan: Doing better/ CXRY improved. Renal function better/change to PO Levaquin and pred titrate off O2/ DC Brovana
[2021-03-23] MEDS: carvediloL 12.5 MG TAB PO SCH ×2 (08:55→22:12)
[2021-03-23] MEDS: FLUTICASONE 50MCG NASAL SPRAY NAS SCH ×2 (08:55→22:17)
[2021-03-23] MEDS: predniSONE 20 MG TAB PO SCH ×2 (08:55→22:12)
[2021-03-23] MEDS: HEPARIN 5000 UNIT/ML 1 ML VIAL SQ SCH ×2 (08:57→22:13)
[2021-03-23] MEDS: THIAMINE HCL 100 MG TABLET PO SCH (08:58)
[2021-03-23] MEDS: CALCITROL 0.25 MCG CAP PO SCH (08:58)
[2021-03-23] MEDS: levoFLOXacin 750 MG TAB PO SCH (08:58)
[2021-03-23] MEDS: AMLODIPINE 10 MG TAB PO SCH (08:58)
[2021-03-23] MEDS: ASCORBIC ACID 500 MG TABLET PO SCH (08:58)
[2021-03-23] MEDS: FUROSEMIDE 40 MG/4 ML VIAL IV SCH (09:00)
[2021-03-23] MEDS: NEPRO SHAKE 237 ML CAN PO SCH ×2 (09:00→16:48)
[2021-03-23] MEDS ORDERED: levoFLOXacin 500 MG TAB PO SCH (09:00)
[2021-03-23] MEDS: VITAMIN D 5,000 UNIT CAP PO SCH (09:01)
[2021-03-23] MEDS: clonazePAM 0.5 MG TAB PO PRN ×3 (09:12→23:03)
[2021-03-23] MEDS ORDERED: TRAMADOL HCL 50 MG TAB PO PRN (13:24)
--- NOTE | 2021-03-23 22:14 | P.PN ---
Date of Service: 03/23/21 Vital Signs Temp Pulse Resp BP Pulse Ox 98.6 F 83 20 145/62 H 92 03/23/21 20:00 03/23/21 20:00 03/23/21 20:00 03/23/21 20:00 03/23/21 20:00 Medications Acetaminophen (Acetaminophen 500 Mg Tab) 500 mg PO Q4HP PRN PRN Reason: TEMP > 100' F OR MILD PAIN Last Admin: 03/21/21 13:12 Dose: 500 mg Documented by: Albuterol Sulfate (Albuterol 2.5 Mg/3 Ml Neb Constance) 2.5 mg NEB [id number] PRN PRN Reason: SHORTNESS OF BREATH Amlodipine Besylate (Amlodipine 10 Mg Tab) 10 mg PO DAILY [facility] Last Admin: 03/23/21 08:58 Dose: 10 mg Documented by: Ascorbic Acid (Ascorbic Acid 500 Mg Tablet) 500 mg PO DAILY [facility] Last Admin: 03/23/21 08:58 Dose: 500 mg Documented by: Calcitriol (Calcitrol 0.25 Mcg Cap) 0.5 mcg PO DAILY [facility] Last Admin: 03/23/21 08:58 Dose: 0.5 mcg Documented by: Carvedilol (Carvedilol 12.5 Mg Tab) 12.5 mg PO BID [facility] Last Admin: 03/23/21 08:55 Dose: 12.5 mg Documented by: Cholecalciferol (Vitamin D 5,000 Unit Cap) 5,000 unit PO DAILY [facility] Last Admin: 03/23/21 09:01 Dose: 5,000 unit Documented by: Clonazepam (Clonazepam 0.5 Mg Tab) 0.5 mg PO TID PRN PRN Reason: ANXIETY Last Admin: 03/23/21 16:47 Dose: 0.5 mg Documented by: Dextrose (D50w 25 Gm/50 Ml Syringe) 12.5 gm IV PRN PRN; Protocol PRN Reason: HYPOGLYCEMIA Enteral Nutritional Formula (Nepro Shake 237 Ml Can) 237 ml PO BIDL [facility] Last Admin: 03/23/21 16:48 Dose: 237 ml Documented by: Fluticasone Propionate (Fluticasone 50mcg Nasal [place]) 1 sprays NIK BID [facility] Last Admin: 03/23/21 08:55 Dose: 1 spray Documented by: Furosemide (Furosemide 40 Mg/4 Ml Vial) 40 mg IV DAILY [facility] Last Admin: 03/23/21 09:00 Dose: 40 mg Documented by: Glucagon (Glucagon 1 Mg/Vial) 1 mg IM 1X PRN; Protocol PRN Reason: HYPOGLYCEMIA Heparin Sodium (Porcine) (Heparin 5000 Unit/Ml 1 Ml Vial) 5,000 unit SQ Q12HR [facility] Last Admin: 03/23/21 08:57 Dose: 5,000 unit Documented by: Insulin Glargine (Insulin Glargine 100 Unit/Ml) 15 unit SQ BID [facility] Last Admin: 03/23/21 08:15 Dose: 15 unit Documented by: Insulin Human Regular (Insulin -Regular Human 50 Unit/0.5 Ml Ml) 0 unit SQ ACHS [facility]; Protocol Last Admin: 03/23/21 16:30 Dose: Not Given Documented by: Ipratropium [place] (Ipratropium Brom 0.5mg/2.5ml) 0.5 mg NEB [id number] PRN PRN Reason: SHORTNESS OF BREATH Levofloxacin (Levofloxacin 750 Mg Tab) 750 mg PO Q48H [facility]; Protocol Last Admin: 03/23/21 08:58 Dose: 750 mg Documented by: Ondansetron HCl (Ondansetron 4 Mg/2 Ml Vial) 4 mg IV Q6HP PRN PRN Reason: NAUSEA / VOMITING Prednisone (Prednisone 20 Mg Tab) 20 mg PO BID [facility] Last Admin: 03/23/21 08:55 Dose: 20 mg Documented by: Sodium Chloride (Flush Normal Saline 10 Ml) 10 ml IV BID [facility] Last Admin: 03/23/21 09:00 Dose: 10 ml Documented by: Thiamine HCl (Thiamine Hcl 100 Mg Tablet) 100 mg PO DAILY [facility] Last Admin: 03/23/21 08:58 Dose: 100 mg Documented by: Tramadol HCl (Tramadol Hcl 50 Mg Tab) 50 mg PO TID PRN PRN Reason: Pain scale 5-7 (Moderate) Microbiology Results 03/20/21 15:20 Blood - Blood Aerobic Blood Culture - Preliminary No growth in 24 hours. 03/20/21 15:20 Blood - Blood Anaerobic Blood Culture - Preliminary No growth in 24 hours. 03/20/21 15:10 Blood - Blood Aerobic Blood Culture - Preliminary No growth in 24 hours. 03/20/21 15:10 Blood - Blood Anaerobic Blood Culture - Preliminary No growth in 24 hours. Assessment/ Plan: Nephrology Dyspnea improving. Feeling better. No chest pain No acute events overnight Vitals, medications, blood work and imaging reviewed in the chart General: Oriented x3, Cooperative, No distress HEENT: Atraumatic Neck: Supple Respiratory: Normal respiratory effort Cardiovascular: Regular rate/rhythm Gastrointestinal: Non-distended Musculoskeletal: No clubbing, No contractures Integumentary: No rashes, No cyanosis Neurological: Normal speech Laboratory Data (last 24 hrs) 03/20/21 15:10: PT 15.1 H, INR 1.31, APTT 37.5 H 03/20/21 15:10: WBC 9.30, Hgb 12.7 L, Hct 38.2 L, Plt Count 183 03/20/21 15:10: Sodium 127 L, Potassium 4.3, BUN 53 H, Creatinine 3.02 H, Glucose 132 H, Total Bilirubin 0.3, AST 27, ALT 75, Alkaline Phosphatase 138 H, Amylase 46, Lipase 94 Imagings Data: EXAM DESCRIPTION: CT - Thorax Wo Con - 03/20/2021 5:57 pm CLINICAL HISTORY: SOB COMPARISON: No comparisons FINDINGS: Chest Wall: No suspicious thyroid nodules or pathologic lymphadenopathy. Lungs: Multifocal nodular airspace disease with consolidation in the lower lungs bilaterally. Pleura: Small bilateral pleural effusions. Mediastinum/jessee: No pathologic lymphadenopathy. Pulmonary arteries/Aorta: Limited evaluation without contrast. No aortic aneurysm. Heart: No significant pericardial effusion. Normal heart size. Coronary artery disease. Upper abdomen: Small volume of ascites. Bones: No acute abnormality. All CT scans are performed using dose optimization technique as appropriate and may include automated exposure control or mA/KV adjustment according to patient size. IMPRESSION: Patchy nodular and basilar consolidative airspace disease with small pleural effusions likely multifocal pneumonia. The findings would be atypical for Covid-19 pneumonia. Coexisting pulmonary edema is within the differential as well. Small volume of ascites which is nonspecific. EXAM DESCRIPTION: RAD - Chest Single View - 03/20/2021 3:51 pm CLINICAL HISTORY: DYSPNEa COMPARISON: Chest Pa And Lat (2 Views) dated 04/02/2018; Abdomen Acute Series dated 05/30/2017 FINDINGS: Lines: None. Lungs: Moderate multifocal airspace disease which is partially consolidative in the lung bases. Pleural: No significant pleural effusions or pneumothorax. Cardiac: The heart size is within normal limits. Bones: No acute fractures. Other: IMPRESSION: Moderate multifocal airspace disease concerning for multifocal pneumonia including Covid-19. EXAM DESCRIPTION: RADChest Single View03/22/2021 8:21 am CLINICAL HISTORY: Chest pain COMPARISON: March 20, 2021 FINDINGS: Overall no significant change in moderate bilateral pulmonary opacities probably pneumonia. Heart is normal size EXAM DESCRIPTION: RAD - Chest Single View - 03/23/2021 5:23 am CLINICAL HISTORY: follow up pneumonia COMPARISON: Chest Single View dated 03/22/2021; Chest Single View dated 03/20/2021; Chest Pa And Lat (2 Views) dated 04/02/2018; Abdomen Acute Series dated 05/30/2017 FINDINGS: Lines: None. Lungs: Multifocal bilateral airspace disease with improved aeration of the lung bases. Pleural: No significant pleural effusions or pneumothorax. Cardiac: The heart size is within normal limits. Bones: No acute fractures. Other: IMPRESSION: Improved aeration of the lungs with decreased airspace disease in the lung bases. Conclusions/Impression: ALYSON in the setting of hypovolemia CKD III? 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
[2021-03-24 04:21] LABS: Absolute Lymphocytes (CBC) 0.8 K/uL (0.7-4.9); Hematocrit 34.9 % (39.6-49.0); MPV 9.5 fL (7.6-11.3); RBC Red Blood Cell Count 3.85 M/uL (4.33-5.43)
[2021-03-24 04:44] LABS: Albumin 2.6 g/dL (3.4-5.0); Bilirubin Total 0.3 mg/dL (0.2-1.0); Magnesium 2.5 mg/dL (1.8-2.4); Potassium 3.5 mmol/L (3.5-5.1); Protein, Total 6.7 g/dL (6.4-8.2)
--- NOTE | 2021-03-24 05:44 | P.PN ---
Subjective Date of Service: 03/24/21 Primary Care Provider: Dr. Swann Chief Complaint: Severe pneumonia Subjective: Improving Physical Examination - Vital Signs Temperature: 98.2 F Blood Pressure: 154/76 Pulse: 69 Respirations: 20 Pulse Ox (%): 97 Assessment & Plan Discharge Plan: Home Plan to discharge in: 24 Hours Physician Review Additional Text: COVID: Negative Influenza: Negative CXR: COMPARISON: Chest Pa And Lat (2 Views) dated 04/02/2018; Abdomen Acute Series dated 05/30/2017 FINDINGS: Lines: None. Lungs: Moderate multifocal airspace disease which is partially consolidative in the lung bases. Pleural: No significant pleural effusions or pneumothorax. Cardiac: The heart size is within normal limits. Bones: No acute fractures. IMPRESSION: Moderate multifocal airspace disease concerning for multifocal pneumonia including Covid-19. CT scan: COMPARISON: No comparisons FINDINGS: Chest Wall: No suspicious thyroid nodules or pathologic lymphadenopathy. Lungs: Multifocal nodular airspace disease with consolidation in the lower lungs bilaterally. Pleura: Small bilateral pleural effusions. Mediastinum/jessee: No pathologic lymphadenopathy. Pulmonary arteries/Aorta: Limited evaluation without contrast. No aortic aneurysm. Heart: No significant pericardial effusion. Normal heart size. Coronary artery disease. Upper abdomen: Small volume of ascites. Bones: No acute abnormality. All CT scans are performed using dose optimization technique as appropriate and may include automated exposure control or mA/KV adjustment according to patient size. IMPRESSION: Patchy nodular and basilar consolidative airspace disease with small pleural effusions likely multifocal pneumonia. The findings would be atypical for Covid-19 pneumonia. Coexisting pulmonary edema is within the differential as well. Small volume of ascites which is nonspecific. Follow up CXR 03/23/2021: COMPARISON: Chest Single View dated 03/22/2021; Chest Single View dated 03/20/2021; Chest Pa And Lat (2 Views) dated 04/02/2018; Abdomen Acute Series dated 05/30/2017 FINDINGS: Lines: None. Lungs: Multifocal bilateral airspace disease with improved aeration of the lung bases. Pleural: No significant pleural effusions or pneumothorax. Cardiac: The heart size is within normal limits. Bones: No acute fractures. IMPRESSION: Improved aeration of the lungs with decreased airspace disease in the lung bases. ECHO: MEASUREMENTS (cm) DIASTOLIC (NORMALS) SYSTOLIC (NORMALS) IVSd 0.8 (0.6-1.2) LA Diam 3.0 (1.9-4.0) LVEF 65% LVIDd 4.1 (3.5-5.7) LVIDs 2.7 (2.0-3.5) %FS 35% LVPWd 0.9 (0.6-1.2) Ao Diam 2.4 (2.0-3.7) 2 DIMENSIONAL ASSESSMENT: RIGHT ATRIUM: NORMAL LEFT ATRIUM: NORMAL RIGHT VENTRICLE: NORMAL LEFT VENTRICLE: NORMAL TRICUSPID VALVE: NORMAL MITRAL VALVE: NORMAL PULMONIC VALVE: NORMAL AORTIC VALVE: NORMAL PERICARDIAL EFFUSION: NONE AORTIC ROOT: NORMAL LEFT VENTRICULAR WALL MOTION: NORMAL DOPPLER/COLOR FLOW: MILD TRICUSPID REGURGITATION. COMMENTS: MILD TRICUSPID REGURGITATION. NORMAL LEFT VENTRICULAR SIZE AND FUNCTION. NORMAL WALL MOTION ABNORMALITY. NO EFFUSION Physical Exam General: Alert, In no apparent distress, Oriented x3 HEENT: Mouth dry Respiratory: Bilateral. Down to 6 L per nasal cannula. 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 Down to 6 L per nasal cannula. Continue to wean off oxygen. Maintain sats above 93%. Continue IV Lasix. Continue Levaquin. Echocardiogram shows normal ejection fraction 65%. Will discuss with pulmonology about plan of care. Need to determine if patient has underlying COPD or CHF. Anticipate continued improvement. Likely home in the next 1 to 2 days. Acute renal insufficiency, dehydration: Renal function improved. Continue IV Lasix. Will discuss further with nephrology. 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 We will continue to adjust for better control. Continue Accuchecks and sliding scale. HTN: Blood pressure still elevated. Increase carvedilol to 25 mg 1 pill twice daily. Patient remains on Norvasc 10 mg daily. DM Neuropathy: Provide medication for pain as needed COPD: Suspect underlying COPD. Wean off oral steroid. Brovana was discontinued by pulmonology. Will discuss further with pulmonology as patient may require home oxygen. Tobacco abuse: Continue with education for cessation. Anxiety: Continue with medication as needed Seasonal allergies: Continue Flonase CODE STATUS: Full code DVT prophylaxis: Lovenox Advance care [id number] minutes: Home at discharge Time Spent Managing Pts Care (In Minutes): 55
[2021-03-24] MEDS: INSULIN -REGULAR HUMAN 50 UNIT/0.5 ML ML SQ SCH ×4 (07:30→20:36)
[2021-03-24] MEDS: FLUTICASONE 50MCG NASAL SPRAY NAS SCH ×2 (08:50→20:36)
[2021-03-24] MEDS: INSULIN GLARGINE 100 UNIT/ML SQ SCH ×2 (08:50→20:35)
[2021-03-24] MEDS: NEPRO SHAKE 237 ML CAN PO SCH ×2 (08:50→17:00)
[2021-03-24] MEDS: VITAMIN D 5,000 UNIT CAP PO SCH (08:51)
[2021-03-24] MEDS: CALCITROL 0.25 MCG CAP PO SCH (08:51)
[2021-03-24] MEDS: FUROSEMIDE 40 MG/4 ML VIAL IV SCH (08:51)
[2021-03-24] MEDS: predniSONE 20 MG TAB PO SCH ×2 (08:52→20:35)
[2021-03-24] MEDS: ASCORBIC ACID 500 MG TABLET PO SCH (08:52)
[2021-03-24] MEDS: HEPARIN 5000 UNIT/ML 1 ML VIAL SQ SCH ×2 (08:52→20:35)
[2021-03-24] MEDS: AMLODIPINE 10 MG TAB PO SCH (08:52)
[2021-03-24] MEDS: carvediloL 12.5 MG TAB PO SCH (08:52)
[2021-03-24] MEDS ORDERED: POTASSIUM CL SA 10 MEQ TAB PO ONE ×2 (09:00→12:06)
[2021-03-24] MEDS: clonazePAM 0.5 MG TAB PO PRN ×2 (09:02→22:26)
[2021-03-24] MEDS: THIAMINE HCL 100 MG TABLET PO SCH (09:02)
--- NOTE | 2021-03-24 10:53 | RAD REPORT ---
EXAM DESCRIPTION: [place] Single View03/24/2021 10:44 am CLINICAL HISTORY: Pneumonia COMPARISON: March 23, 2021 FINDINGS: Partial resolution in the left lower lobe consolidation. Bilateral pulmonary opacities have partially resolved. Small pleural effusions left greater than right. Heart is normal size IMPRESSION: Improvement in the bilateral pneumonia
[2021-03-24] MEDS ORDERED: BUMETANIDE 1 MG TABLET PO ONE (13:00)
[2021-03-24] MEDS: AMILORIDE HCL 5 MG TABLET PO SCH (13:00)
[2021-03-24] MEDS: carvediloL 25 MG TAB PO SCH (20:35)
[2021-03-24 20:42] VITALS: O2SAT 96
--- NOTE | 2021-03-24 20:55 | P.PN ---
Date of Service: 03/24/21 Vital Signs Temp Pulse Resp BP Pulse Ox 97.5 F 73 17 177/81 H 93 03/24/21 19:54 03/24/21 20:35 03/24/21 19:54 03/24/21 20:35 03/24/21 19:54 Medications Acetaminophen (Acetaminophen 500 Mg Tab) 500 mg PO Q4HP PRN PRN Reason: TEMP > 100' F OR MILD PAIN Last Admin: 03/21/21 13:12 Dose: 500 mg Documented by: Albuterol Sulfate (Albuterol 2.5 Mg/3 Ml Neb Constance) 2.5 mg NEB [id number] PRN PRN Reason: SHORTNESS OF BREATH Amiloride HCl (Amiloride Hcl 5 Mg Tablet) 10 mg PO DAILY [facility] Last Admin: 03/24/21 13:00 Dose: 10 mg Documented by: Amlodipine Besylate (Amlodipine 10 Mg Tab) 10 mg PO DAILY [facility] Last Admin: 03/24/21 08:52 Dose: 10 mg Documented by: Ascorbic Acid (Ascorbic Acid 500 Mg Tablet) 500 mg PO DAILY [facility] Last Admin: 03/24/21 08:52 Dose: 500 mg Documented by: Calcitriol (Calcitrol 0.25 Mcg Cap) 0.5 mcg PO DAILY [facility] Last Admin: 03/24/21 08:51 Dose: 0.5 mcg Documented by: Carvedilol (Carvedilol 25 Mg Tab) 25 mg PO BID [facility] Last Admin: 03/24/21 20:35 Dose: 25 mg Documented by: Cholecalciferol (Vitamin D 5,000 Unit Cap) 5,000 unit PO DAILY [facility] Last Admin: 03/24/21 08:51 Dose: 5,000 unit Documented by: Clonazepam (Clonazepam 0.5 Mg Tab) 0.5 mg PO TID PRN PRN Reason: ANXIETY Last Admin: 03/24/21 09:02 Dose: 0.5 mg Documented by: Dextrose (D50w 25 Gm/50 Ml Syringe) 12.5 gm IV PRN PRN; Protocol PRN Reason: HYPOGLYCEMIA Enteral Nutritional Formula (Nepro Shake 237 Ml Can) 237 ml PO BIDL [facility] Last Admin: 03/24/21 17:00 Dose: 237 ml Documented by: Fluticasone Propionate (Fluticasone 50mcg Nasal [place]) 1 sprays NIK BID [facility] Last Admin: 03/24/21 20:36 Dose: 1 spray Documented by: Furosemide (Furosemide 40 Mg/4 Ml Vial) 40 mg IV DAILY [facility] Last Admin: 03/24/21 08:51 Dose: 40 mg Documented by: Glucagon (Glucagon 1 Mg/Vial) 1 mg IM 1X PRN; Protocol PRN Reason: HYPOGLYCEMIA Heparin Sodium (Porcine) (Heparin 5000 Unit/Ml 1 Ml Vial) 5,000 unit SQ Q12HR [facility] Last Admin: 03/24/21 20:35 Dose: 5,000 unit Documented by: Insulin Glargine (Insulin Glargine 100 Unit/Ml) 10 unit SQ BID [facility] Last Admin: 03/24/21 20:35 Dose: 10 unit Documented by: Insulin Human Regular (Insulin -Regular Human 50 Unit/0.5 Ml Ml) 0 unit SQ ACHS [facility]; Protocol Last Admin: 03/24/21 20:36 Dose: Not Given Documented by: Ipratropium [place] (Ipratropium Brom 0.5mg/2.5ml) 0.5 mg NEB [id number] PRN PRN Reason: SHORTNESS OF BREATH Levofloxacin (Levofloxacin 750 Mg Tab) 750 mg PO Q48H [facility]; Protocol Last Admin: 03/23/21 08:58 Dose: 750 mg Documented by: Ondansetron HCl (Ondansetron 4 Mg/2 Ml Vial) 4 mg IV Q6HP PRN PRN Reason: NAUSEA / VOMITING Prednisone (Prednisone 20 Mg Tab) 20 mg PO BID [facility] Last Admin: 03/24/21 20:35 Dose: 20 mg Documented by: Sodium Chloride (Flush Normal Saline 10 Ml) 10 ml IV BID [facility] Last Admin: 03/24/21 20:36 Dose: 10 ml Documented by: Thiamine HCl (Thiamine Hcl 100 Mg Tablet) 100 mg PO DAILY [facility] Last Admin: 03/24/21 09:02 Dose: 100 mg Documented by: Tramadol HCl (Tramadol Hcl 50 Mg Tab) 50 mg PO TID PRN PRN Reason: Pain scale 5-7 (Moderate) Microbiology Results 03/20/21 15:20 Blood - Blood Aerobic Blood Culture - Preliminary No growth in 24 hours. 03/20/21 15:20 Blood - Blood Anaerobic Blood Culture - Preliminary No growth in 24 hours. 03/20/21 15:10 Blood - Blood Aerobic Blood Culture - Preliminary No growth in 24 hours. 03/20/21 15:10 Blood - Blood Anaerobic Blood Culture - Preliminary No growth in 24 hours. Assessment/ Plan: Nephrology Dyspnea improving. Feeling better. Worsening edema. No chest pain No acute events overnight Vitals, medications, blood work and imaging reviewed in the chart General: Oriented x3, Cooperative, No distress HEENT: Atraumatic Neck: Supple Respiratory: Normal respiratory effort Cardiovascular: Regular rate/rhythm. LE Edema 1+ Gastrointestinal: Non-distended Musculoskeletal: No clubbing, No contractures Integumentary: No rashes, No cyanosis Neurological: Normal speech Laboratory Data (last 24 hrs) 03/20/21 15:10: PT 15.1 H, INR 1.31, APTT 37.5 H 03/20/21 15:10: WBC 9.30, Hgb 12.7 L, Hct 38.2 L, Plt Count 183 03/20/21 15:10: Sodium 127 L, Potassium 4.3, BUN 53 H, Creatinine 3.02 H, Glucose 132 H, Total Bilirubin 0.3, AST 27, ALT 75, Alkaline Phosphatase 138 H, Amylase 46, Lipase 94 Imagings Data: EXAM DESCRIPTION: CT - Thorax Wo Con - 03/20/2021 5:57 pm CLINICAL HISTORY: SOB COMPARISON: No comparisons FINDINGS: Chest Wall: No suspicious thyroid nodules or pathologic lymphadenopathy. Lungs: Multifocal nodular airspace disease with consolidation in the lower lungs bilaterally. Pleura: Small bilateral pleural effusions. Mediastinum/jessee: No pathologic lymphadenopathy. Pulmonary arteries/Aorta: Limited evaluation without contrast. No aortic aneurysm. Heart: No significant pericardial effusion. Normal heart size. Coronary artery disease. Upper abdomen: Small volume of ascites. Bones: No acute abnormality. All CT scans are performed using dose optimization technique as appropriate and may include automated exposure control or mA/KV adjustment according to patient size. IMPRESSION: Patchy nodular and basilar consolidative airspace disease with small pleural effusions likely multifocal pneumonia. The findings would be atypical for Covid-19 pneumonia. Coexisting pulmonary edema is within the differential as well. Small volume of ascites which is nonspecific. EXAM DESCRIPTION: RAD - Chest Single View - 03/20/2021 3:51 pm CLINICAL HISTORY: DYSPNEa COMPARISON: Chest Pa And Lat (2 Views) dated 04/02/2018; Abdomen Acute Series dated 05/30/2017 FINDINGS: Lines: None. Lungs: Moderate multifocal airspace disease which is partially consolidative in the lung bases. Pleural: No significant pleural effusions or pneumothorax. Cardiac: The heart size is within normal limits. Bones: No acute fractures. Other: IMPRESSION: Moderate multifocal airspace disease concerning for multifocal pneumonia including Covid-19. EXAM DESCRIPTION: RADChest Single View03/22/2021 8:21 am CLINICAL HISTORY: Chest pain COMPARISON: March 20, 2021 FINDINGS: Overall no significant change in moderate bilateral pulmonary opacities probably pneumonia. Heart is normal size EXAM DESCRIPTION: RAD - Chest Single View - 03/23/2021 5:23 am CLINICAL HISTORY: follow up pneumonia COMPARISON: Chest Single View dated 03/22/2021; Chest Single View dated 03/20/2021; Chest Pa And Lat (2 Views) dated 04/02/2018; Abdomen Acute Series dated 05/30/2017 FINDINGS: Lines: None. Lungs: Multifocal bilateral airspace disease with improved aeration of the lung bases. Pleural: No significant pleural effusions or pneumothorax. Cardiac: The heart size is within normal limits. Bones: No acute fractures. Other: IMPRESSION: Improved aeration of the lungs with decreased airspace disease in the lung bases. LEFT VENTRICULAR WALL MOTION: NORMAL DOPPLER/COLOR FLOW: MILD TRICUSPID REGURGITATION. COMMENTS: MILD TRICUSPID REGURGITATION. NORMAL LEFT VENTRICULAR SIZE AND FUNCTION. NORMAL WALL MOTION ABNORMALITY. NO EFFUSION Conclusions/Impression: ALYSON in the setting of hypovolemia CKD III? 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
[2021-03-25] MEDS: ACETAMINOPHEN 500 MG TAB PO PRN (01:02)
--- NOTE | 2021-03-25 05:51 | P.DS ---
Admission Date: 03/20/21 Discharge Date: 03/25/21 Primary Care Provider: Dr. Swann Disposition: ROUTINE DISCHARGE Discharge Condition: GOOD Reason for Admission: Severe pneumonia Consultations: Pulmonary-Dr. Rowe Nephrology-Dr. Boles Procedures: COVID: Negative Influenza: Negative CXR: COMPARISON: Chest Pa And Lat (2 Views) dated 04/02/2018; Abdomen Acute Series dated 05/30/2017 FINDINGS: Lines: None. Lungs: Moderate multifocal airspace disease which is partially consolidative in the lung bases. Pleural: No significant pleural effusions or pneumothorax. Cardiac: The heart size is within normal limits. Bones: No acute fractures. IMPRESSION: Moderate multifocal airspace disease concerning for multifocal pneumonia including Covid-19. CT scan: COMPARISON: No comparisons FINDINGS: Chest Wall: No suspicious thyroid nodules or pathologic lymphadenopathy. Lungs: Multifocal nodular airspace disease with consolidation in the lower lungs bilaterally. Pleura: Small bilateral pleural effusions. Mediastinum/jessee: No pathologic lymphadenopathy. Pulmonary arteries/Aorta: Limited evaluation without contrast. No aortic aneurysm. Heart: No significant pericardial effusion. Normal heart size. Coronary artery disease. Upper abdomen: Small volume of ascites. Bones: No acute abnormality. All CT scans are performed using dose optimization technique as appropriate and may include automated exposure control or mA/KV adjustment according to patient size. IMPRESSION: Patchy nodular and basilar consolidative airspace disease with small pleural effusions likely multifocal pneumonia. The findings would be atypical for Covid-19 pneumonia. Coexisting pulmonary edema is within the differential as well. Small volume of ascites which is nonspecific. Follow up CXR 03/24/2021: COMPARISON: March 23, 2021 FINDINGS: Partial resolution in the left lower lobe consolidation. Bilateral pulmonary opacities have partially resolved. Small pleural effusions left greater than right. Heart is normal size IMPRESSION: Improvement in the bilateral pneumonia ECHO: MEASUREMENTS (cm) DIASTOLIC (NORMALS) SYSTOLIC (NORMALS) IVSd 0.8 (0.6-1.2) LA Diam 3.0 (1.9-4.0) LVEF 65% LVIDd 4.1 (3.5-5.7) LVIDs 2.7 (2.0-3.5) %FS 35% LVPWd 0.9 (0.6-1.2) Ao Diam 2.4 (2.0-3.7) 2 DIMENSIONAL ASSESSMENT: RIGHT ATRIUM: NORMAL LEFT ATRIUM: NORMAL RIGHT VENTRICLE: NORMAL LEFT VENTRICLE: NORMAL TRICUSPID VALVE: NORMAL MITRAL VALVE: NORMAL PULMONIC VALVE: NORMAL AORTIC VALVE: NORMAL PERICARDIAL EFFUSION: NONE AORTIC ROOT: NORMAL LEFT VENTRICULAR WALL MOTION: NORMAL DOPPLER/COLOR FLOW: MILD TRICUSPID REGURGITATION. COMMENTS: MILD TRICUSPID REGURGITATION. NORMAL LEFT VENTRICULAR SIZE AND FUNCTION. NORMAL WALL MOTION ABNORMALITY. NO EFFUSION CT Scan Chest angio: COMPARISON: Thorax Wo Con dated 03/20/2021; Chest Single View dated 03/24/2021 TECHNIQUE: Dynamically enhanced 3 mm thick images of the chest were obtained during administration of approximately 150mL Isovue 370 IV contrast. Coronal and oblique MIP reconstruction images were generated and reviewed. Exam utilizes a protocol to evaluate the pulmonary arterial tree. All CT scans are performed using dose optimization technique as appropriate and may include automated exposure control or mA/KV adjustment according to patient size. FINDINGS: No pulmonary emboli are identified. The aorta as imaged shows no acute or suspicious finding. No pericardial thickening or effusion. In the inferior aspect of the left lower lobe there is airspace opacification with air bronchogram formation. No endobronchial lesion identified. Elsewhere in the lung parenchyma very faint areas of ground-glass opacification are present possibly atelectasis or additional sites of infiltrate. Minimal atelectasis is present in the posterior gutter right lobe. The patient has a minimal left pleural effusion. No pneumothorax. No mediastinal or hilar suspicious masses. No chest wall masses or abnormal axillary lymphadenopathy. IMPRESSION: No pulmonary emboli identified. Left lower lobe pneumonia involving inferior aspect of the left lower lobe. There is an associated minimal pleural effusion on the left. Medical Problem List: Hypoxia with acute respiratory failure secondary to multifocal pneumonia with small pleural effusions Acute renal insufficiency, dehydration with Chronic renal disease stage 3 with noted edema to the lower extremities DM Type 1 insulin dependent with hypoglycemia HTN DM Neuropathy Tobacco abuse Anxiety Seasonal allergies Brief History of Present Illness: 50-year-old male with history of diabetes presented with shortness of breath. Patient found to have hypoxia. Chest x-ray revealed bilateral pneumonia. Patient admitted for treatment. Hospital Course: Patient presented shortness of breath, hypoxia. Patient found to have acute respiratory failure related to multifocal pneumonia and pleural effusions. Patient was admitted for treatment. Patient seen and evaluated by pulmonology. Patient also had acute renal insufficiency with underlying chronic renal disease stage III. Patient received IV fluids, IV antibiotic therapy and treatment. Patient improved. Patient did receive IV Lasix as well due edema to the lower extremity and pleural effusions. At discharge patient without significant shortness of breath. Patient no longer on oxygen. Edema significantly improved. CT chest was performed prior to discharge after improved renal function to rule out pulmonary embolism. No pulmonary embolism was identified. At discharge the patient will continue with Levaquin 750 mg every 48 hours up to 2 more doses. At discharge the patient will continue with prednisone 10 mg 1 pill twice daily for 7 days then 1 pill once daily for 7 days. Recommend to recheck chest x-ray in 2 to 4 weeks to monitor resolution. Recommend follow-up with PCP to follow-up this hospitalization. Recommend follow-up with pulmonology in 2 to 4 weeks to follow-up his hospitalization. Education on pneumonia and pleural effusion provided. As mentioned above patient presented with acute on chronic renal disease stage III. Patient was seen by nephrology. Patient had edema to the lower extremity with pleural effusions noted. Patient received IV Lasix with improvement. Patient also received other diuretic therapy with improvement. At discharge patient may continue with Aldactone 25 mg daily as needed for edema. Hold medication if no further edema. Recommend to recheck labBMP in 1 week to monitor his progress. As mentioned above recommend to recheck chest x-ray in 2 to 4 weeks. Future medications may need to be renally dosed. Recommend follow- up with nephrology in 1 to 2 weeks to follow-up his hospitalization. Patient with diabetes mellitus type 2 insulin-dependent. Patient has done well. At discharge patient will continue with his insulin regimen Basaglar 13 units subcu daily. Patient also takes insulin sliding scale. Recommend to maintain blood sugar less than 140 fasting and less than 200 after meals. If blood sugar remains above 200 further adjustment in his insulinBasaglar may be required. Patient can increase Basaglar 1 to 2 units until blood sugars better control. This can be done with the help of his PCP. Recommend to recheck hemoglobin A1c every 3 months to monitor his progress. Recommend follow-up with PCP in 1 week to follow-up his hospitalization and further his care. Patient with hypertension. Medications have been adjusted. At discharge patient will continue with carvedilol 25 mg 1 pill twice daily and Norvasc 10 mg daily. Recommend to maintain blood pressure less than 130/80. Further adjustment can be done by his PCP. Patient with diabetic neuropathy. At discharge patient will continue with his current medicationNucynta 100 mg 3 times a day. Patient with seasonal allergic rhinitis. At discharge patient may continue with Flonase 1 spray per nostril twice daily. Recommend follow-up with his ENT if this persists. Patient with anxiety. At discharge patient will continue with Klonopin 0.5 mg 3 times a day as needed for anxiety. Patient with mild GERD. Will continue with Protonix 40 mg daily while on prednisone. Vital Signs/Physical Exam: Temp Pulse Resp BP Pulse Ox 97.1 F 68 17 143/75 H 99 03/25/21 04:00 03/25/21 04:00 03/25/21 04:00 03/25/21 04:00 03/25/21 04:00 General: Alert, In no apparent distress, Oriented x3, Cooperative HEENT: Atraumatic Neck: Supple Respiratory: Clear to auscultation bilaterally Cardiovascular: Normal pulses, Regular rate/rhythm Gastrointestinal: Normal bowel sounds, No ascites Musculoskeletal: No tenderness, No warmth, Other (Swelling to the lower extremity significantly improved) Integumentary: No erythema, No warmth, No cyanosis Neurological: Normal speech, Normal strength at 5/5 x4 extr, Normal tone Laboratory Data at Discharge: WBC 10.30 K/uL (4.3-10.9) D 03/24/21 03:36 Hgb 11.8 g/dL (13.6-17.9) L 03/24/21 03:36 Hct 34.9 % (39.6-49.0) L 03/24/21 03:36 Plt Count 272 K/uL (152-406) 03/24/21 03:36 PT 15.1 SECONDS (9.5-12.5) H 03/20/21 15:10 INR 1.31 03/20/21 15:10 APTT 37.5 SECONDS (24.3-36.9) H 03/20/21 15:10 Sodium 139 mmol/L (136-145) 03/24/21 03:36 Potassium 3.5 mmol/L (3.5-5.1) 03/24/21 03:36 BUN 31 mg/dL (7-18) H 03/24/21 03:36 Creatinine 1.36 mg/dL (0.55-1.3) H 03/24/21 03:36 Glucose 43 mg/dL (74-106) L* 03/24/21 03:36 Uric Acid 4.3 mg/dL (3.5-7.2) 03/23/21 04:07 Phosphorus 2.5 mg/dL (2.5-4.9) 03/24/21 03:36 Magnesium 2.5 mg/dL (1.8-2.4) H 03/24/21 03:36 Total Bilirubin 0.3 mg/dL (0.2-1.0) 03/24/21 03:36 AST 26 U/L (15-37) 03/24/21 03:36 ALT 57 U/L (12-78) 03/24/21 03:36 Alkaline Phosphatase 87 U/L (45-117) 03/24/21 03:36 Troponin I 0.02 ng/mL (0.0-0.045) 03/23/21 04:07 Triglycerides 81 mg/dL (<150) 03/21/21 03:24 Cholesterol 79 mg/dL (<200) 03/21/21 03:24 HDL Cholesterol 33 mg/dL (40-60) L 03/21/21 03:24 Cholesterol/HDL Ratio 2.39 03/21/21 03:24 Amylase 46 U/L (25-115) 03/20/21 15:10 Lipase 94 U/L (73-393) 03/20/21 15:10 Home Medications: Amlodipine [Norvasc*] 10 mg PO DAILY 03/21/21 Carvedilol [Coreg] 12.5 mg PO DAILY 03/21/21 Insulin Aspart (Niacinamide) [Fiasp 100 Unit/ml Vial] See Protocol SQ TID 03/21/21 Insulin Glargine,Hum.rec.anlog [Basaglar Kwikpen U-100] 13 unit SQ DAILY 03/21/21 Tapentadol HCl [Nucynta] 100 mg PO TID 03/21/21 clonazePAM [Klonopin*] 0.5 mg PO TID 03/21/21 Albuterol Inhaler [Ventolin Inhaler*] 2 puff IH TID PRN #1 hfa.aer.ad 03/25/21 Fluticasone [Flonase 50MCG Nasal [place]*] 1 sprays NIK BID #1 btl 03/25/21 Pantoprazole [Protonix Tab] 40 mg PO DAILY #30 tab 03/25/21 Spironolactone [Aldactone] 25 mg PO DAILY PRN #30 tab 03/25/21 carvediloL [Coreg*] 25 mg PO BID #60 tab 03/25/21 levoFLOXacin [Levaquin*] 750 mg PO Q48H #2 tab 03/25/21 predniSONE [Deltasone*] 10 mg PO SEECOM #21 tab 03/25/21 New Medications: Spironolactone [Aldactone] 25 mg PO DAILY PRN #30 tab PRN Reason: Shortness Of Breath carvediloL [Coreg*] 25 mg PO BID #60 tab predniSONE [Deltasone*] 10 mg PO SEECOM #21 tab Fluticasone [Flonase 50MCG Nasal [place]*] 1 sprays NIK BID #1 btl levoFLOXacin [Levaquin*] 750 mg PO Q48H #2 tab Pantoprazole [Protonix Tab] 40 mg PO DAILY #30 tab Albuterol Inhaler [Ventolin Inhaler*] 2 puff IH TID PRN #1 hfa.aer.ad PRN Reason: Shortness Of Breath Physician Discharge Instructions: Patient presented shortness of breath, hypoxia. Patient found to have acute respiratory failure related to multifocal pneumonia and pleural effusions. Patient was admitted for treatment. Patient seen and evaluated by pulmonology. Patient also had acute renal insufficiency with underlying chronic renal disease stage III. Patient received IV fluids, IV antibiotic therapy and treatment. Patient improved. Patient did receive IV Lasix as well due edema to the lower extremity and pleural effusions. At discharge patient without significant s hortness of breath. Patient no longer on oxygen. Edema significantly improved. CT chest was performed prior to discharge after improved renal function to rule out pulmonary embolism. No pulmonary embolism was identified. At discharge the patient will continue with Levaquin 750 mg every 48 hours up to 2 more doses. At discharge the patient will continue with prednisone 10 mg 1 pill twice daily for 7 days then 1 pill once daily for 7 days. Recommend to recheck chest x-ray in 2 to 4 weeks to monitor resolution. Recommend follow-up with PCP to follow- up this hospitalization. Recommend follow-up with pulmonology in 2 to 4 weeks to follow-up his hospitalization. Education on pneumonia and pleural effusion provided. As mentioned above patient presented with acute on chronic renal disease stage III. Patient was seen by nephrology. Patient had edema to the lower extremity with pleural effusions noted. Patient received IV Lasix with improvement. Patient also received other diuretic therapy with improvement. At discharge patient may continue with Aldactone 25 mg daily as needed for edema. Hold medication if no further edema. Recommend to recheck labBMP in 1 week to monitor his progress. As mentioned above recommend to recheck chest x-ray in 2 to 4 weeks. Future medications may need to be renally dosed. Recommend follow- up with nephrology in 1 to 2 weeks to follow-up his hospitalization. Patient with diabetes mellitus type 2 insulin-dependent. Patient has done well. At discharge patient will continue with his insulin regimen Basaglar 13 units subcu daily. Patient also takes insulin sliding scale. Recommend to maintain blood sugar less than 140 fasting and less than 200 after meals. If blood sugar remains above 200 further adjustment in his insulinBasaglar may be required. Patient can increase Basaglar 1 to 2 units until blood sugars better control. This can be done with the help of his PCP. Recommend to recheck hemoglobin A1c every 3 months to monitor his progress. Recommend follow-up with PCP in 1 week to follow-up his hospitalization and further his care. Patient with hypertension. Medications have been adjusted. At discharge patient will continue with carvedilol 25 mg 1 pill twice daily and Norvasc 10 mg daily. Recommend to maintain blood pressure less than 130/80. Further adjustment can be done by his PCP. Patient with diabetic neuropathy. At discharge patient will continue with his current medicationNucynta 100 mg 3 times a day. Patient with seasonal allergic rhinitis. At discharge patient may continue with Flonase 1 spray per nostril twice daily. Recommend follow-up with his ENT if this persists. Patient with anxiety. At discharge patient will continue with Klonopin 0.5 mg 3 times a day as needed for anxiety. Patient with mild GERD. Will continue with Protonix 40 mg daily while on prednisone. Diet: ADA Activity: Ad vianca Followup: Gabe Swann MD [Primary Care Provider] - Time spent managing pt's care (in minutes): 55
[2021-03-25 06:15] LABS: Magnesium 2.2 mg/dL (1.8-2.4); Potassium 3.8 mmol/L (3.5-5.1)
[2021-03-25] MEDS ORDERED: BUMETANIDE 1 MG/4 ML VIAL IV ONE (06:34)
[2021-03-25] MEDS: AMLODIPINE 10 MG TAB PO SCH (07:59)
[2021-03-25] MEDS: carvediloL 25 MG TAB PO SCH (07:59)
[2021-03-25] MEDS: INSULIN GLARGINE 100 UNIT/ML SQ SCH (08:30)
[2021-03-25] MEDS: INSULIN -REGULAR HUMAN 50 UNIT/0.5 ML ML SQ SCH ×2 (08:30→12:30)
--- NOTE | 2021-03-25 08:46 | RAD REPORT ---
EXAM DESCRIPTION: CT - Chest For Pe Angio - 03/25/2021 8:17 am CLINICAL HISTORY: evaluate for pulmonary embolus COMPARISON: Thorax Wo Con dated 03/20/2021; Chest Single View dated 03/24/2021 TECHNIQUE: Dynamically enhanced 3 mm thick images of the chest were obtained during administration o f approximately 150mL Isovue 370 IV contrast. Coronal and oblique MIP reconstruction images were gene rated and reviewed. Exam utilizes a protocol to evaluate the pulmonary arterial tree. All CT scans are performed using dose optimization technique as appropriate and may include automated exposure control or mA/KV adjustment according to patient size. FINDINGS: No pulmonary emboli are identified. The aorta as imaged shows no acute or suspicious finding. No pericardial thickening or effusion. In the inferior aspect of the left lower lobe there is airspace opacification with air bronchogram fo rmation. No endobronchial lesion identified. Elsewhere in the lung parenchyma very faint areas of felipe und-glass opacification are present possibly atelectasis or additional sites of infiltrate. Minimal a telectasis is present in the posterior gutter right lobe. The patient has a minimal left pleural effu [place]. No pneumothorax. No mediastinal or hilar suspicious masses. No chest wall masses or abnormal axillary lymphadenopathy. IMPRESSION: No pulmonary emboli identified. Left lower lobe pneumonia involving inferior aspect of the left lower lobe. There is an associated mi nimal pleural effusion on the left.
[2021-03-25] MEDS ORDERED: POTASSIUM CL SA 10 MEQ TAB PO ONE (09:00)
[2021-03-25] MEDS: NEPRO SHAKE 237 ML CAN PO SCH (09:00)
[2021-03-25] MEDS: FLUTICASONE 50MCG NASAL SPRAY NAS SCH (09:00)
[2021-03-25] MEDS: AMILORIDE HCL 5 MG TABLET PO SCH (09:30)
[2021-03-25] MEDS: VITAMIN D 5,000 UNIT CAP PO SCH (09:30)
[2021-03-25] MEDS: ASCORBIC ACID 500 MG TABLET PO SCH (09:30)
[2021-03-25] MEDS: CALCITROL 0.25 MCG CAP PO SCH (09:30)
[2021-03-25] MEDS: THIAMINE HCL 100 MG TABLET PO SCH (09:30)
[2021-03-25] MEDS: HEPARIN 5000 UNIT/ML 1 ML VIAL SQ SCH (09:30)
[2021-03-25] MEDS: levoFLOXacin 750 MG TAB PO SCH (09:30)
[2021-03-25] MEDS: predniSONE 20 MG TAB PO SCH (09:30)
[2021-03-25] MEDS: clonazePAM 0.5 MG TAB PO PRN (10:21)
[2021-03-25 18:26] VITALS: BP 144/76; TEMP 97.6
--- NOTE | 2021-03-25 23:45 | P.PN ---
Date of Service: 03/25/21 Vital Signs Temp Pulse Resp BP Pulse Ox 97.6 F 64 17 144/76 H 97 03/25/21 16:00 03/25/21 16:00 03/25/21 16:00 03/25/21 16:00 03/25/21 16:00 Microbiology Results 03/20/21 15:20 Blood - Blood Aerobic Blood Culture - Final No growth in 5 days. 03/20/21 15:20 Blood - Blood Anaerobic Blood Culture - Final No growth in 5 days. 03/20/21 15:10 Blood - Blood Aerobic Blood Culture - Final No growth in 5 days. 03/20/21 15:10 Blood - Blood Anaerobic Blood Culture - Final No growth in 5 days. Assessment/ Plan: Nephrology Feeling better with improving dyspnea. Persistent edema. No chest pain No acute events overnight Vitals, medications, blood work and imaging reviewed in the chart General: Oriented x3, Cooperative, No distress HEENT: Atraumatic Neck: Supple Respiratory: Normal respiratory effort Cardiovascular: Regular rate/rhythm. LE Edema 1+ Gastrointestinal: Non-distended Musculoskeletal: No clubbing, No contractures Integumentary: No rashes, No cyanosis Neurological: Normal speech Laboratory Data (last 24 hrs) 03/20/21 15:10: PT 15.1 H, INR 1.31, APTT 37.5 H 03/20/21 15:10: WBC 9.30, Hgb 12.7 L, Hct 38.2 L, Plt Count 183 03/20/21 15:10: Sodium 127 L, Potassium 4.3, BUN 53 H, Creatinine 3.02 H, Glucose 132 H, Total Bilirubin 0.3, AST 27, ALT 75, Alkaline Phosphatase 138 H, Amylase 46, Lipase 94 Imagings Data: EXAM DESCRIPTION: CT - Thorax Con - 03/20/2021 5:57 pm CLINICAL HISTORY: SOB COMPARISON: No comparisons FINDINGS: Chest Wall: No suspicious thyroid nodules or pathologic lymphadenopathy. Lungs: Multifocal nodular airspace disease with consolidation in the lower lungs bilaterally. Pleura: Small bilateral pleural effusions. Mediastinum/jessee: No pathologic lymphadenopathy. Pulmonary arteries/Aorta: Limited evaluation without contrast. No aortic a neurysm. Heart: No significant pericardial effusion. Normal heart size. Coronary artery disease. Upper abdomen: Small volume of ascites. Bones: No acute abnormality. All CT scans are performed using dose optimization technique as appropriate and may include automated exposure control or mA/KV adjustment according to patient size. IMPRESSION: Patchy nodular and basilar consolidative airspace disease with small pleural effusions likely multifocal pneumonia. The findings would be atypical for Covid-19 pneumonia. Coexisting pulmonary edema is within the differential as well. Small volume of ascites which is nonspecific. EXAM DESCRIPTION: RAD - Chest Single View - 03/20/2021 3:51 pm CLINICAL HISTORY: DYSPNEa COMPARISON: Chest Pa And Lat (2 Views) dated 04/02/2018; Abdomen Acute Series dated 05/30/2017 FINDINGS: Lines: None. Lungs: Moderate multifocal airspace disease which is partially consolidative in the lung bases. Pleural: No significant pleural effusions or pneumothorax. Cardiac: The heart size is within normal limits. Bones: No acute fractures. Other: IMPRESSION: Moderate multifocal airspace disease concerning for multifocal pneumonia including Covid-19. EXAM DESCRIPTION: RADChest Single View03/22/2021 8:21 am CLINICAL HISTORY: Chest pain COMPARISON: March 20, 2021 FINDINGS: Overall no significant change in moderate bilateral pulmonary opacities probably pneumonia. Heart is normal size EXAM DESCRIPTION: RAD - Chest Single View - 03/23/2021 5:23 am CLINICAL HISTORY: follow up pneumonia COMPARISON: Chest Single View dated 03/22/2021; Chest Single View dated 03/20/2021; Chest Pa And Lat (2 Views) dated 04/02/2018; Abdomen Acute Series dated 05/30/2017 FINDINGS: Lines: None. Lungs: Multifocal bilateral airspace disease with improved aeration of the lung bases. Pleural: No significant pleural effusions or pneumothorax. Cardiac: The heart size is within normal limits. Bones: No acute fractures. Other: IMPRESSION: Improved aeration of the lungs with decreased airspace disease in the lung bases. LEFT VENTRICULAR WALL MOTION: NORMAL DOPPLER/COLOR FLOW: MILD TRICUSPID REGURGITATION. COMMENTS: MILD TRICUSPID REGURGITATION. NORMAL LEFT VENTRICULAR SIZE AND FUNCTION. NORMAL WALL MOTION ABNORMALITY. NO EFFUSION Conclusions/Impression: ALYSON in the setting of hypovolemia CKD III? with proteinuria (Baseline serum creatinine 1.1-1.2) -No NSAIDs Hyponatremia -Encourage nutrition Hypokalemia -Replete potassium prn Hypocalcemia -Continue calcitriol -Continue cholecalciferol HTN with CKD -Continue Amlodipine -Continue Coreg LE Edema -Bumex prn -Low sodium diet Acute hypoxic respiratory failure Multifocal PNA -Continue Oxygen supplementation -Bipap prn -Continue abx DM I with CKD & Hyperglycemia & Polyneuropathy Hypoglycemia -RISS Moderate malnutrition -Continue Nepro
== END 2021-03-25 18:01 | disposition home or self-care (01) | DRG 193 ==
LOC: ER 15:11 → ERHOLD 20:18 → 2ND 03-22 06:09
PROVIDERS: ADMIT Hospitalist; ATTEND Family Medicine
PROC: 5A09557 Assistance with Respiratory Ventilation, Greater than 96 Consecutive Hours, Continuous Positive Airway Pressure (ICD-10-PCS; principal; 2021-03-20)
DX: J18.9 Pneumonia, unspecified organism (principal); J96.01 Acute respiratory failure with hypoxia; N17.9 Acute kidney failure, unspecified; E87.1 Hypo-osmolality and hyponatremia; E44.0 Moderate protein-calorie malnutrition; J91.8 Pleural effusion in other conditions classified elsewhere; J44.0 Chronic obstructive pulmonary disease with (acute) lower respiratory infection; E86.0 Dehydration; N28.9 Disorder of kidney and ureter, unspecified; I12.9 Hypertensive chronic kidney disease with stage 1 through stage 4 chronic kidney disease, or unspecified chronic kidney disease; N18.30 Chronic kidney disease, stage 3 unspecified; E10.22 Type 1 diabetes mellitus with diabetic chronic kidney disease; E10.65 Type 1 diabetes mellitus with hyperglycemia; E10.649 Type 1 diabetes mellitus with hypoglycemia without coma; E10.42 Type 1 diabetes mellitus with diabetic polyneuropathy; J30.2 Other seasonal allergic rhinitis; E87.6 Hypokalemia; E83.51 Hypocalcemia; F41.9 Anxiety disorder, unspecified; K21.9 Gastro-esophageal reflux disease without esophagitis; Z86.16 Personal history of COVID-19; Z79.4 Long term (current) use of insulin; Z68.20 Body mass index [BMI] 20.0-20.9, adult; Z79.52 Long term (current) use of systemic steroids; Z79.899 Other long term (current) drug therapy; Z87.891 Personal history of nicotine dependence; Z20.822 Contact with and (suspected) exposure to COVID-19
CPT/HCPCS: 36415; 71045; 71250; 71275; 80048; 80053; 80061; 80076; 81003; 81015; 82150; 82550; 82553; 82805; 82947; 83036; 83605; 83690; 83735; 83880; 84100; 84132; 84145; 84484; 84550; 85025; 85610; 85730; 87040; 87070; 87205; 93005; 93306; 94010; 94640; 94660; 94760; 96365; 96366; 96367; 99285; J1644; J1940; J2543; J2920; J2930; J3370; J7030; J7042; J7050; J7512; J7605; Q9967; U0003